=== PATIENT | female | born 1970 | race Caucasian/White ===

== ENCOUNTER 2024-03-07 14:30 | Outpatient (RCR) | payer MEDICAID, SELFPAY ==
--- NOTE | 2024-02-28 15:51 | PT.OIERPT ---
PT OP Initial Eval Patient Information Outpatient Physical Therapy Treatment Date: 02/28/24 Medical Diagnosis: Back Pain Treatment Dx #1: Back Pain Start of Care: 02/28/24 Smoking Status Smoking Status: Current some day smoker (yes) Cessation Counseling Provided: CHRISTIANO was advised that quitting smoking is the single most important factor to protect the health of themselves and their family. Discussed the benefits of quitting smoking with patient. Encouraged patient to quit smoking and provided Cessation assistance materials and resources. Tobacco Use: Cigarette Years smoked: 20 Are you interested in quitting?: No Would you like additional Smoking Cessation Counseling?: No Initial Assessment Subjective: Pt is a 53 y/o female reports of chronic back pain worsening 6 months ago. Pt mention pain goes down the legs up to the back of the knees. Pt's most recent MRI showed L4-L5 4mm central disc bulge. Pt has limitation with standing, chores, self care, sitting, walking, sleeping, and performing recreational activities. Objective: L/S AROM: all motions are WFL with end range in all planes Hip PROM: all motions are WFL except IR Hip MMTs: grossly 3/5 Muscle Length: Hs tightness Special Test (+) EULOGIO's (+) Aleksander (+) Assessment: Pt demonstrate back pain with mobility deficits leading to difficulty with ADLs. Pt will attempt physical therapy if pain persist Pt will be refer back to provider for further consultation. Short Term and Skilled Nursing Goals 1) Increase L/S AROM WNL in 6 wks to be able to perform chores 2) Decrease back pain to 2/10 in 6 wks to be able sit more than 30 mins 3) Increase core strength WFL in 6 wks to be able to perform recreational activities 4) Increase hip MMTs grossly 4-/5 in 6 wks to be able to walk more than 30 mins 5) Indep with HEP Treatment Plan 1) Manual Therapy 2) Therapeutic Activities 3) Therapeutic Exercises 4) Modalities (ice, heat, traction) Frequency and Duration: 2 x wk for 6 wks Certification Dates: 02/28/24 to 05/30/24 Procedure Charges OP PT Eval Mod Complex 30 minutes: Yes
--- NOTE | 2024-03-07 14:41 | PT.ODAYNRPT ---
PT Outpatient Daily Note OP Daily Note Outpatient Physical Therapy Treatment Date: 03/07/24 Subjective: Pt's back pain is about the same. No numbness or tingling down the legs. Objective: Please see flow chart for list of ther ex performed Assessment: tolerate exercises performed; pre heat helped with supine exercises Plan: Continue with PT Length of Time (minutes) of Treatment: 30 Minutes Procedure Charges Therapeutic Exercise 30 minutes: Yes
== END 2024-03-11 23:59 | disposition home or self-care (01) ==
LOC: CPTX 14:30
PROVIDERS: PCP Physician Assistant; Referring Provider Physician Assistant; Visit Provider Physician Assistant
DX: M54.9 Dorsalgia, unspecified (principal); G89.29 Other chronic pain; Z71.6 Tobacco abuse counseling; F17.210 Nicotine dependence, cigarettes, uncomplicated; R26.2 Difficulty in walking, not elsewhere classified
CPT/HCPCS: 97110; 97162

== ENCOUNTER 2024-03-27 15:30 | Outpatient (RCR) | payer MEDICAID, SELFPAY ==
--- NOTE | 2024-03-13 14:34 | PT.ODAYNRPT ---
PT Outpatient Daily Note OP Daily Note Outpatient Physical Therapy Treatment Date: 03/13/24 Visit Reasons: Low back pain Subjective: Pt's back was sore after last session. Pt mention she likes the heat on the back which helps with the pain. Objective: Please see flow chart for list of ther ex performed Assessment: tolerate exercises with minimal pain. improved Hs length noted with this session Plan: Continue with PT Length of Time (minutes) of Treatment: 30 Minutes Procedure Charges Therapeutic Exercise 30 minutes: Yes
--- NOTE | 2024-03-15 14:54 | PT.ODAYNRPT ---
PT Outpatient Daily Note OP Daily Note Outpatient Physical Therapy Treatment Date: 03/15/24 Visit Reasons: Low back pain Subjective: Pt's back slight soreness after last session. Pt likes the heat and wants to continue with it today. Objective: Please see flow chart for list of ther ex performed Assessment: tolerate exercises performed today. Pt guarded with LTR exercises due to anticipation of pain, however, able to complete instructed reps Plan: Continue with PT Length of Time (minutes) of Treatment: 30 Minutes Procedure Charges Therapeutic Exercise 30 minutes: Yes
--- NOTE | 2024-03-20 15:31 | PT.ODAYNRPT ---
PT Outpatient Daily Note OP Daily Note Outpatient Physical Therapy Treatment Date: 03/20/24 Visit Reasons: Low back pain Subjective: Pt's back is okay. Pt still notice stiffness and some restriction. Pt's leg pain has been less. Objective: Please see flow chart for list of ther ex performed Assessment: Pt require less cues to engage TrA with post tilt exercises. Plan: Continue with PT Length of Time (minutes) of Treatment: 30 Minutes Procedure Charges Therapeutic Exercise 30 minutes: Yes
--- NOTE | 2024-03-24 15:38 | PT.ODAYNRPT ---
PT Outpatient Daily Note OP Daily Note Outpatient Physical Therapy Treatment Date: 03/24/24 Visit Reasons: Low back pain Subjective: Pt's back is better since starting physical therapy. Pt has been able to do chores with less pain. Pt is undecided if she wants to continue or discontinue physical therapy after her last session. Objective: Please see flow chart for list of ther ex performed Assessment: able to tolerate BLE on SB during heat which prior session patient was unable to assume position. This indicate patient's improvement with L/S mobility Plan: Continue with PT Length of Time (minutes) of Treatment: 30 Minutes Procedure Charges Therapeutic Exercise 30 minutes: Yes
--- NOTE | 2024-03-27 15:54 | PT.ODS1RPT ---
PT OP Progress/Discharge Note Date of Service: 03/27/24 Progress Note/DC Note Progress Note/Discharge Note: DC Note Patient Information Visit Reasons: Low back pain Medical Diagnosis: Back Pain Treatment Dx #1: Back Pain Service Discharge Date: 03/27/24 Status Subjective: Pt continues to have back and leg pain leading to difficulty with ADLs, standing, chores, and walking. At the moment Pt will like to stop physical therapy and follow up with MD. Objective: L/S AROM: all motions are WFL Hip PROM: all motions are WFL except IR Hip MMTs: grossly 3+/5 Assessment: Pt demonstrate functional L/S mobility and strength, however, no change in pain leading to difficulty with ADLs. Pt will no longer benefit from physical therapy due to minimal progress towards goals. Pt was instructed on HEP last session and educated to continue exercises to maintian overall mobility. Pt performed all exercises safely, thank you for your referrals. Plan: D/C home with HEP and follow up with PRN Procedure Charges Therapeutic Exercise 30 minutes: Yes
== END 2024-04-11 23:59 | disposition home or self-care (01) ==
LOC: CPTX 15:30
PROVIDERS: PCP Physician Assistant; Referring Provider Physician Assistant; Visit Provider Physician Assistant
DX: M51.362 Other intervertebral disc degeneration, lumbar region with discogenic back pain and lower extremity pain (principal); R26.2 Difficulty in walking, not elsewhere classified
CPT/HCPCS: 97110

== ENCOUNTER → 2024-05-19 | Outpatient (CLI) | payer MEDICAID, SELFPAY ==
--- NOTE | 2024-05-19 15:30 | XR_ITS ---
Examination: Arterial duplex lower extremity study. Date and time of exam: May 19, 2024 1601 hrs. Indications: Bilateral ankle and leg weakness and pain this week Findings: Duplex sonographic imaging of the lower extremity arteries using B-mode/Vega scale imaging and Doppler spectral analysis and color flow. Ankle brachial indices have been recorded. Right common femoral artery demonstrates triphasic flow. Right superficial femoral artery demonstrates triphasic flow. Right popliteal artery demonstrates triphasic flow. Right posterior tibial artery demonstrated triphasic flow. Right ankle/brachial index is 1.1. Fluid medial right knee versus cyst 15 x 15 mm Left common femoral artery demonstrates triphasic flow. Left superficial femoral artery demonstrates triphasic flow. Left popliteal artery demonstrates triphasic flow. Left posterior tibial artery demonstrated triphasic flow. Left ankle/brachial index is 1.2. Impression: Negative for obstructive arterial disease
== END | disposition home or self-care (01) ==
LOC: CDIM 15:47
PROVIDERS: PCP Physician Assistant; Referring Provider Physician Assistant; Visit Provider Physician Assistant
DX: M79.606 Pain in leg, unspecified (principal); F17.210 Nicotine dependence, cigarettes, uncomplicated
CPT/HCPCS: 93925

== ENCOUNTER 2024-06-07 01:03 | Emergency (ER) | payer MEDICAID, SELFPAY ==
[2024-06-07 01:04] VITALS: BMI 29.8
[2024-06-07 01:10] VITALS: BP 145/83; PULSE 81; RESP 18; TEMP 36.7; O2SAT 96
--- NOTE | 2024-06-07 01:24 | XR_ITS ---
Examination: PA lateral chest 2 views Technique: Upright PA lateral chest 2 views Exam date and time: June 07, 2024 0125 hrs. Indications: Upper back pain beginning 4 days ago chest pain Findings: Normal heart size. Lungs are clear. The osseous structures are intact Impression: No active disease
--- NOTE | 2024-06-07 01:24 | PD.EDRME ---
Rapid Medical Screening Exam RME Arrival date/time: 06/07/24 01:03 53-year-old female past medical history of diabetes presents emergency department complaining of left upper thoracic back pain that worsens when she left upper arms or bends over. Patient reports onset 4 days ago. Patient denies any recent fall or trauma. Chief Complaint: Back Pain/Injury Time Seen by Provider: 06/07/24 01:13 Vital signs: Vital Signs Temperature 98.1 F 06/07/24 01:10 Pulse Rate 81 06/07/24 01:10 Respiratory Rate 18 06/07/24 01:10 Blood Pressure 145/83 H 06/07/24 01:10 Pulse Oximetry (%) 96 06/07/24 01:10 Oxygen Delivery Method Room Air 06/07/24 01:10 Vital signs reviewed by provider: Yes
[2024-06-07] MEDS: KETOROLAC INJ 60 MG/2 ML VIAL 30 MG IM (01:38)
[2024-06-07] MEDS: CYCLObenzaPRINE 5 MG TABLET PO (01:38)
--- NOTE | 2024-06-07 01:56 | PD.EDBACK ---
ED Back Injury Pain RME/HPI General Chief Complaint: Back Pain/Injury Stated Complaint: LEFT UPPER BACK PAIN RADIATES TO CHEST Time Seen by Provider: 06/07/24 01:13 Source: patient Arrival date/time: 06/07/24 01:03 53-year-old female past medical history of diabetes presents emergency department complaining of left upper thoracic back pain that worsens when she left upper arms or bends over. Patient reports onset 4 days ago. Patient denies any recent fall or trauma. Patient Nuys any fever, chills, nausea, vomiting, cough, shortness of breath, chest pain, sore throat, or any other associated symptom. Mode of arrival: ambulatory Limitations: no limitations RME / HPI RME / HPI Narrative: 06/07/24 01:03 53-year-old female past medical history of diabetes presents emergency department complaining of left upper thoracic back pain that worsens when she left upper arms or bends over. Patient reports onset 4 days ago. Patient denies any recent fall or trauma. Related Data Home Medications ?Medication ?Instructions ?Recorded ?Confirmed metformin 1,000 mg tablet 1,000 mg PO HS 04/02/21 11/24/23 atorvastatin 10 mg tablet 10 mg PO HS 11/24/23 11/24/23 dexlansoprazole 60 mg 60 mg PO DAILY 11/24/23 11/24/23 capsule,biphase delayed release mirabegron 25 mg tablet,extended 25 mg PO DAILY 11/24/23 11/24/23 release 24 hr Previous Rx's ?Medication ?Instructions ?Recorded acetaminophen 500 mg capsule 500 mg PO Q6H PRN pain #30 caps 06/07/24 cyclobenzaprine 10 mg tablet 10 mg PO TID PRN muscle spasm #10 06/07/24 tabs ibuprofen 600 mg tablet 600 mg PO Q8H PRN pain #20 tabs 06/07/24 Allergies Allergy/AdvReac Type Severity Reaction Status Date / Time No Known Allergies Allergy Verified 11/24/23 12:55 Review of Systems Review of Systems Systems Reviewed: All systems reviewed, normal except as documented Constitutional Constitutional: Reports system reviewed and no additional complaints, except as documented, Denies body ache(s), Denies chills and Denies fever(s) Eyes Eyes: Reports system reviewed and no additional complaints, except as documented and Denies change in vision ENT Ears, Nose, Mouth, and Throat: Reports system reviewed and no additional complaints, except as documented, Denies disequilibrium, Denies dizziness, Denies sore throat and Denies vertigo Cardiovascular Cardiovascular: Reports system reviewed and no additional complaints, except as documented, Denies chest pain and Denies dyspnea Respiratory Respiratory: Reports system reviewed and no additional complaints, except as documented, Denies chest congestion, Denies cough and Denies dyspnea Gastrointestinal Gastrointestinal: Reports system reviewed and no additional complaints, except as documented, Denies abdominal pain, Denies nausea and Denies vomiting Musculoskeletal Musculoskeletal: Reports system reviewed and no additional complaints, except as documented, Denies abnormal gait, Denies arthralgias and Reports back pain Integumentary/Breasts Skin/Breast: Reports system reviewed and no additional complaints, except as documented, Denies erythema, Denies rash and Denies wounds Neurologic Neurologic: Reports system reviewed and no additional complaints, except as documented, Denies abnormal gait, Denies disequilibrium, Denies dizziness and Denies vertigo Past Medical History Past Medical History NEUROLOGIC: Negative Neurological Disorders or Seizures CARDIAC: Positive Cardiac Disorders and Hypercholesterolemia; Negative Congestive Heart Failure RESPIRATORY: Negative Chronic Obstructive Pulmonary Disease (COPD), Asthma, Emphysema, Pneumonia or Tuberculosis GASTROINTESTINAL: Positive Gastroesophageal Reflux Disease; Negative Gastrointestinal Disorders GENITOURINARY: Positive Genitourinary Disorders (over reactive uinary bladder); Negative Renal Disease MUSCULOSKELETAL: Negative Musculoskeletal Disorders ENDOCRINE: Positive Endocrine Disorders and Diabetes Mellitus Type 2; Negative Diabetes Mellitus Type 1 HEMATOLOGIC: Negative Blood Disorders or Sickle Cell Disease OTHER HISTORY: Positive Chicken Pox; Negative Blood Transfusions, Anesthesia Reactions or Cancer Surgical History SURGICAL: Positive Tonsillectomy, Hysterectomy and Tubal Ligation; Negative Joint Replacement (bilateral feet surgery to remove extra bone ) Social History SMOKING STATUS: Current every day smoker ED Exam General Limitations: Present no limitations General appearance: Present alert and in no apparent distress Head Head exam: Present atraumatic Eye Eye exam: Present normal appearance, PERRL and EOMI ENT ENT exam: Present normal exam, normal oropharynx and mucous membranes moist Neck Neck exam: Present normal inspection, full ROM and trachea midline Chest Chest inspection: Present normal inspection and symmetric chest wall rise Respiratory Respiratory exam: Present normal lung sounds bilaterally Cardiovascular Cardiovascular exam: Present regular rate, normal rhythm and normal heart sounds Abdominal Exam Abdominal exam: Present soft and normal bowel sounds Extremities Exam Extremities exam: Present normal inspection and full ROM Back Exam Back exam: Present normal inspection and full ROM Neurological Exam Neurological exam: Present alert, oriented X3 and CN II-XII intact Psychiatric Psychiatric exam: Present normal affect and normal mood Skin Skin exam: Present warm, dry, intact and normal color Course Quality Measures none Orders Category Date Time Status XR chest 2V Stat Exams 06/07/24 01:24 Taken CYCLObenzaPRINE [Flexeril] Med 06/07/24 01:25 Discontinued 5 mg PO X1 ONE Ketorolac Inj [Toradol Inj] Med 06/07/24 01:25 Discontinued 30 mg IM X1 ONE Vital Signs Vital signs: Vital Signs Temperature 98.1 F 06/07/24 01:10 Pulse Rate 81 06/07/24 01:10 Respiratory Rate 18 06/07/24 01:10 Blood Pressure 145/83 H 06/07/24 01:10 Pulse Oximetry (%) 96 06/07/24 01:10 Oxygen Delivery Method Room Air 06/07/24 01:10 96% room air within normal limits Back Pain / Injury MDM Narrative MDM Narrative:: 53-year-old female past medical history of diabetes presents emergency department complaining of left upper thoracic back pain that worsens when she left upper arms or bends over. Patient reports onset 4 days ago. Patient denies any recent fall or trauma. Patient Nuys any fever, chills, nausea, vomiting, cough, shortness of breath, chest pain, sore throat, or any other associated symptom. Patient's upper extremity are neurovascularly intact with full active range of motion. No costovertebral tenderness and negative Abreu's punch negative. Left upper back pain worsens with movement and also upon palpation. Patient likely has muscle strain. Chest x-ray was unremarkable for any pneumonic infiltrates based on my interpretation and patient is asymptomatic with no cough or difficulty breathing. Will discharge patient with pain medication and instructed to have close follow-up with primary care provider request referral to physical therapy if symptoms persist or return immediately to emergency department for any worsening symptoms or as needed. Patient data External records reviewed:: [facility] previous records Clinical information provided by:: patient Social determinants that could affect healthcare access:: none Patient has the following chronic illnesses:: See chart How is presenting disease/condition affected by chronic disease/condition?: uneffected by Evaluation data The following diagnostics were reviewed and interpreted by me:: radiology exam(s) Lab and/or radiology exams considered but not ordered:: Ordered Interpretation Summary: Interpreted by me Medications / Prescriptions Medications or Prescriptions considered but not ordered:: Ordered Medication administrations:: Medication Administration History Discontinued Medications Cyclobenzaprine HCl (Cyclobenzaprine 5 Mg Tablet) 5 mg PO X1 ONE Stop: 06/07/24 01:26 Last Admin: 06/07/24 01:38 Dose: 5 mg Documented By: CVL Ketorolac Tromethamine (Ketorolac Inj 60 Mg/2 Ml Vial) 30 mg IM X1 ONE Stop: 06/07/24 01:26 Last Admin: 06/07/24 01:38 Dose: 30 mg Documented By: CVL Given Consultations Consultation(s) initiated? (list below): No Diagnosis Differential diagnosis back pain/injury: lumbar radiculopathy, renal colic, pyelonephritis, thoracic back pain and discitis Most likely diagnosis given after review of the tests above:: Strain of thoracic back region Admission Indicated Admission indicated?: not indicated Admission Request Was there a request for admission?: No Disposition Plan Disposition Plan: Discharge Discharge Attestation Discharge Attestation: The patient and all family members were given an opportunity to ask questions and understood the discharge instructions. Discharge instructions specifically effects, indications for sooner follow up or return to the emergency department, and the expected course of current diagnosis. Patient condition: Stable Discharge Plan Plan Patient Disposition: HOME (Self Care) Disposition Comment: Stable Prescriptions/Referrals Prescriptions/Med Rec: New cyclobenzaprine 10 mg tablet 10 mg PO TID PRN (Reason: muscle spasm) Qty: 10 0RF ibuprofen 600 mg tablet 600 mg PO Q8H PRN (Reason: pain) Qty: 20 0RF acetaminophen 500 mg capsule 500 mg PO Q6H PRN (Reason: pain) Qty: 30 0RF No Action metformin 1,000 mg Tablet 1,000 mg PO HS atorvastatin 10 mg tablet 10 mg PO HS Patient Comments: TAKE 1 TABLET BY MOUTH EVERY DAY AT BEDTIME FOR CHOLESTEROL dexlansoprazole 60 mg capsule,biphase delayed releas 60 mg PO DAILY Patient Comments: TAKE 1 CAPSULE BY MOUTH DAILY 1/2 HOUR BEFORE A MEAL FOR STOMACH mirabegron 25 mg tablet extended release 24 hr 25 mg PO DAILY Patient Comments: TAKE 1 TABLET BY MOUTH EVERY DAY FOR URINE Referrals: Liv Aldrich PA-C [Primary Care Provider] - In 1 week Problem List Clinical Impression: Strain of thoracic back region Patient/Caregiver Discharge Instructions Discharge Activity: activity as tolerated Education Materials: Treating?Strains and Sprains, Self-Care for Strains and Sprains, ED Back Sprain/Strain Additional Instructions: Drink plenty of fluids and stay hydrated. Take pain medication as prescribed. Follow-up with primary care provider in 2 to 3 days and request referral to physical therapy if symptoms persist. Return to emergency department for any worsening symptoms or as needed. Print Language: Sinhala Stand Alone Forms: Vera Award Info., Patient Portal Info Letter PA/HAND PATTERN MARKER Supervising Physician PA/HAND PATTERN MARKER Supervising Physician: Dr. Arce
== END 2024-06-07 02:25 | disposition home or self-care (01) ==
PROVIDERS: Emergency Provider Emergency Medicine; PCP Physician Assistant
DX: S29.012A Strain of muscle and tendon of back wall of thorax, initial encounter (principal); X58.XXXA Exposure to other specified factors, initial encounter
CPT/HCPCS: 71046; 96372; 99283; J1885; A9270

== ENCOUNTER → 2024-07-05 | Outpatient (CLI) | payer MEDICAID, SELFPAY ==
--- NOTE | 2024-07-05 15:15 | XR_ITS ---
Examination: Screening digital mammography, bilateral Computer aided detection 3-D breast Tomosynthesis, bilateral Date and time of exam: July 05, 2024 1554 hours Comparison April 14, 2016 Indication: Screening Technique: Nonmagnified MLO, CC views of the breasts to been obtained, reconstructed from 3-D Tomosynthesis images. R2 computer aided detection program utilized for evaluation of suspicious masses and/or abnormal calcifications. 3-D Tomosynthesis images obtained. Findings: Scattered areas of fibroglandular density. Benign calcifications No interval suspicious masses Impression: BI-RADS category II: Benign Findings. Recommend 1 year follow-up mammogram.
== END | disposition home or self-care (01) ==
LOC: CDIM 14:43
PROVIDERS: Referring Provider Physician Assistant; Visit Provider Physician Assistant
DX: Z12.31 Encounter for screening mammogram for malignant neoplasm of breast (principal); R92.323 Mammographic fibroglandular density, bilateral breasts; R92.1 Mammographic calcification found on diagnostic imaging of breast
CPT/HCPCS: 77063; 77067

== ENCOUNTER 2024-07-30 13:29 | Emergency (ER) | payer MEDICAID, SELFPAY ==
[2024-07-30 13:30] VITALS: BMI 29.8
--- NOTE | 2024-07-30 13:35 | EKG_ITS ---
[facility] Test Date: 2024-07-30 Pat Name: CHRISTIANO ISBELL Department: Room: - Gender: Female Relationship Specialist: : [id number] Requested By: ED Temporary Provider Order Number: [id number] Reading MD: ED Temporary Provider Measurements Intervals [place] Rate: 85 P: 69 PA: 145 QRS: 48 QRSD: 77 T: 77 QT: 334 QTc: 398 Interpretive Statements SINUS RHYTHM WITH SINUS ARRHYTHMIA Compared to ECG 08/16/2023 01:06:01 Myocardial infarct finding no longer present /store/[id number]
[2024-07-30 13:40] VITALS: BP 141/90; PULSE 78; RESP 18; TEMP 36.7; O2SAT 100
--- NOTE | 2024-07-30 13:41 | XR_ITS ---
Examination: PA lateral chest 2 views Technique: Upright PA lateral chest 2 views Exam date and time: July 30, 2024 1405 hrs. Comparison June 07, 2024 Indications: Chest pain beginning 5 days ago. Findings: Normal heart size. Lungs are clear. Moderate osteopenia Impression: No pneumonia or pulmonary edema
--- NOTE | 2024-07-30 13:41 | PD.EDRME ---
Rapid Medical Screening Exam E Arrival date/time: 07/30/24 13:29 53-year-old female presents emergency dept with complaints of upper abdominal pain and chest pain x 5 days Chief Complaint: Chest Pain Vital signs: Vital Signs Temperature 98.1 F 07/30/24 13:40 Pulse Rate 78 07/30/24 13:40 Respiratory Rate 18 07/30/24 13:40 Blood Pressure 141/90 H 07/30/24 13:40 Pulse Oximetry (%) 100 07/30/24 13:40 Oxygen Delivery Method Room Air 07/30/24 13:40
[2024-07-30 14:08] LABS: Collection Type, Urine Clean Catch
[2024-07-30 14:13] LABS: Basophils # (Auto) 0.1 Thou/mm3 (0.0-0.2); Basophils % (Auto) 1 % (0-2.5); Eosinophils # (Auto) 0.1 Thou/mm3 (0.0-0.5); Eosinophils % (Auto) 1 % (0-10); Hematocrit 42.9 % (36.0-46.0); Hemoglobin 14.2 g/dL (12.0-16.0); Immature Granulocytes % (Auto) 0 % (0-0); Immature Granulocytes Auto 0.03 Thou/mm3 (0.00-0.00); Lymphocytes # (Auto) 1.9 Thou/mm3 (1.0-4.8); Lymphocytes % (Auto) 17 % (10-50); Mean Corpuscular HGB Conc 33.1 g/dl (31.0-37.0); Mean Corpuscular Hemoglobin 28.6 pg (25.0-35.0); Mean Corpuscular Volume 87 fL (80-100); Monocytes # (Auto) 0.6 Thou/mm3 (0.0-0.8); Monocytes % (Auto) 5 % (0-12); Neutrophils # (Auto) 8.2 Thou/mm3 (1.8-7.7); Neutrophils % (Auto) 75 % (37-80); Nucleated Red Blood Cell % 0 /100 WBC (0); Platelet Count 388 Thou/mm3 (140-440); RDW Standard Deviation 45.5 fL (36.4-46.3); Red Blood Count 4.96 Miln/mm3 (4.00-5.20); White Blood Count 10.9 Thou/mm3 (3.6-11.0)
[2024-07-30 14:26] LABS: Partial Thromboplastin Time 23.7 Seconds (22.0-36.0); Prothrombin Time 10.9 Seconds (9.0-12.2)
[2024-07-30 14:33] LABS: B-Type Natriuretic Peptide 27 pg/mL (0-100)
[2024-07-30 14:39] LABS: Alanine Aminotransferase 13 U/L (10-49); Albumin, Serum 4.5 gm/dL (3.5-5.0); Alkaline Phosphatase 158 U/L (46-116); Anion Gap 7 (7-16); Aspartate Amino Transferase 14 U/L (0-34); BUN/Creatinine Ratio 7 Ratio (12-20); Bilirubin,Total 0.7 mg/dL (0.3-1.2); Blood Urea Nitrogen 6 mg/dL (9-23); Calcium 9.5 mg/dL (8.3-10.6); Calcium (Corrected) 9.5 mg/dL (8.5-10.1); Carbon Dioxide 23.1 mMol/L (20.0-31.0); Chloride 112 mMol/L (98-107); Creatinine (Component) 0.9 mg/dL (0.6-1.3); Estimated Creatinine Clearance 67.3 mL/min (>60); Globulin 2.2 gm/dL (2.3-3.5); Glucose 215 mg/dL (74-106); Lipase 31 U/L (12-53); Magnesium 1.7 mg/dL (1.6-2.6); Osmolality,Calculated 286 (275-295); Sodium 142 mMol/L (136-145); Total Protein 6.7 gm/dL (5.7-8.2); Troponin I < 0.002 ng/mL (0.0-0.045); eGFR > 60 See Note
[2024-07-30 14:48] LABS: Bilirubin,Urine Negative (Negative); Blood,Urine Negative (Negative); Clarity,Urine Clear (Clear/Hazy); Color,Urine Lt-Yellow (Lt Yel-Yel); Glucose, Urine Negative (Negative); Ketones,Urine Negative (Negative); Leukocyte Esterase,Urine Positive (Negative); Nitrite,Urine Negative (Negative); PH,Urine 5.5 (5.0-7.0); Protein,Urine Negative (Neg - Trace); RBC,Urine 1 /hpf (0-3); Specific Gravity,Urine 1.014 (1.001-1.035); Squamous Epithelial Cell,Urine 2 /hpf (0-5); Urobilinogen,Urine Negative mg/dL (0.0-1.0); WBC,Urine 2 /hpf (0-5)
[2024-07-30 14:50] LABS: Amphetamine/Methamp Scrn,U Negative (Negative); Barbiturate Screen,Urine Negative (Negative); Benzodiazepines Screen,Urine Negative (Negative); Benzoylecgonine Screen, Ur Negative (Negative); Fentanyl Screen,Urine Negative (Negative); Opiate Screen,Urine Negative (Negative); THC Screen,Urine Negative (Negative)
[2024-07-30 16:26] VITALS: BP 153/91; PULSE 84; RESP 12; TEMP 36.9; O2SAT 97
--- NOTE | 2024-07-30 16:33 | EDNOTE_ITS ---
ED General RME/HPI General Chief complaint: Chest Pain Stated complaint: CHEST PAIN X 5 DAYS Time Seen by Provider: 07/30/24 16:12 Arrival date/time: 07/30/24 13:29 CC: Epigastric pain ongoing for the past 5 days denies any diarrhea vomiting, prior episodes in the past worse at nighttime when she lays down. He is on dexlansoprazole for heartburn but has been on it for years. Has an outpatient referral for GI. Denies shortness of breath fever chills nausea or vomiting. RME / HPI RME / HPI narrative: 07/30/24 13:29 53-year-old female presents emergency dept with complaints of upper abdominal pain and chest pain x 5 days Related Data Home Medications ?Medication ?Instructions ?Recorded ?Confirmed metformin 1,000 mg tablet 1,000 mg PO HS 04/02/2111/10 atorvastatin 10 mg tablet 10 mg PO HS 11/24/23 4 dexlansoprazole 60 mg 60 mg PO DAILY 11/24/2311/10 capsule,biphase delayed release mirabegron 25 mg tablet,extended 25 mg PO DAILY 11/24/23 release 24 hr Previous Rx's ?Medication ?Instructions ?Recorded acetaminophen 500 mg capsule 500 mg PO Q6H PRN pain #3 0 caps 06/07/24 cyclobenzaprine 10 mg tablet 10 mg PO TID PRN muscle s pasm #10 06/07/24 tabs ibuprofen 600 mg tablet 600 mg PO Q8H PRN pain #20 t abs 06/07/24 pantoprazole 40 mg granules 40 mg PO QDAY #30 ea 07/30 delayed-release for susp in packet (Protonix) Allergies Allergy/AdvReac Type Severity Reaction Status Date / Time No Known Allergies Allergy Verified 07/30/24 13:33 Review of Systems Review of Systems Narrative Review of Systems: GEN: No fever, no chills, no weight loss EYES: No discharge, no visual changes, no pain HEENT: No ear pain, no congestion, no sore throat PULM: No shortness of breath, no cough, no congestion CV: No chest pain, no dyspnea on exertion, no palpitations GI: No nausea, no vomiting, no diarrhea, + epigastric pain, no constipation : No frequency, no urgency, no dysuria MUSC/SKEL: No joint pain, no back pain SKIN: No rash PSYCH: No hallucinations, no depression HEME/LYMPH: No easy bleeding or bruising tendencies NEURO: No weakness, no headache Past Medical History Past Medical History NEUROLOGIC: Negative Neurological Disorders or Seizures CARDIAC: Positive Cardiac Disorders and Hypercholesterolemia; Negative Congestive Heart Failure RESPIRATORY: Negative Chronic Obstructive Pulmonary Disease (COPD), Asthma, Emphysema, Pneumonia or Tuberculosis GASTROINTESTINAL: Positive Gastroesophageal Reflux Disease; Negative Gastrointestinal Disorders GENITOURINARY: Positive Genitourinary Disorders (over reactive uinary bladder); Negative Renal Disease MUSCULOSKELETAL: Negative Musculoskeletal Disorders ENDOCRINE: Positive Endocrine Disorders and Diabetes Mellitus Type 2; Negative Diabetes Mellitus Type 1 HEMATOLOGIC: Negative Blood Disorders or Sickle Cell Disease OTHER HISTORY: Positive Chicken Pox; Negative Blood Transfusions, Anesthesia Reactions or Cancer Surgical History SURGICAL: Positive Tonsillectomy, Hysterectomy and Tubal Ligation; Negative Joint Replacement (bilateral feet surgery to remove extra bone ) Social History SMOKING STATUS: Current every day smoker ED Exam Narrative Physical exam: [General: Mild discomfort but not in any acute distress Head normocephalic HEENT: Within acceptable limits Neck is supple nontender Chest equal chest rise nontender to palpation Respiratory: Clear to auscultation no wheezes crackles or rubs CV: Rate rhythm is regular no murmurs rubs or clicks Abdomen epigastric pain with palpation, reflexive guarding no rebound tenderness no right upper quadrant tenderness with palpation. Back: No CVA tenderness no spinous process tenderness from cervical spine thoracic and lumbar spine Skin: Intact no petechiae rash induration ulceration or crepitus Extremities: Moving all extremity against resistance cap refill less than 2 seconds neurosensory intact Neuro: Awake alert oriented x3 Glascow coma 15 no focal deficits] Course Quality Measures none Orders Category Date Time Status EKG (ED ONLY) *Do not use* NOW Care 07/30/24 13:35 Completed EKG (ED Only) Stat Exams 07/30/24 13:35 Draft XR chest 2V Stat Exams 07/30/24 13:41 Completed B-Type Natriuretic Peptide Stat Lab 07/30/24 13:49 Completed CBC Stat Lab 07/30/24 13:49 Completed Comprehensive Metabolic Panel Stat Lab 07/30/24 13:49 Completed Drug Screen,Urine Stat Lab 07/30/24 13:35 Completed Lipase Stat Lab 07/30/24 13:49 Completed Magnesium Stat Lab 07/30/24 13:49 Completed Partial Thromboplastin Time Stat Lab 07/30/24 13:49 Completed Prothrombin Time with INR Stat Lab 07/30/24 13:49 Completed Troponin I Stat Lab 07/30/24 13:49 Completed Urinalysis Stat Lab 07/30/24 13:35 Completed Lidocaine 2% Viscous [Xylocaine 2% Viscous] Med 07/30/24 16:32 Once 15 ml PO X1 ONE mg Hyd/Al Hyd/Damon Susp [Maalox Susp] Med 07/30/24 16:32 Once 30 ml PO X1 ONE Vital Signs Vital signs: Vital Signs Temperature 98.1 F 07/30/24 13:40 Pulse Rate 78 07/30/24 13:40 Respiratory Rate 18 07/30/24 13:40 Blood Pressure 141/90 H 07/30/24 13:40 Pulse Oximetry (%) 100 07/30/24 13:40 Oxygen Delivery Method Room Air 07/30/24 13:40 Discharge Plan Plan Patient Disposition: HOME (Self Care) Patient condition on transfer: Stable Prescriptions/Referrals Prescriptions/Med Rec: New pantoprazole [Protonix] [address] for susp in packet 40 mg PO QDAY Qty: 30 0RF No Action metformin 1,000 mg Tablet 1,000 mg PO HS cyclobenzaprine 10 mg tablet 10 mg PO TID PRN (Reason: muscle spasm) Qty: 10 0RF ibuprofen 600 mg tablet 600 mg PO Q8H PRN (Reason: pain) Qty: 20 0RF acetaminophen 500 mg capsule 500 mg PO Q6H PRN (Reason: pain) Qty: 30 0RF atorvastatin 10 mg tablet 10 mg PO HS Patient Comments: TAKE 1 TABLET BY MOUTH EVERY DAY AT BEDTIME FOR CHOLESTEROL dexlansoprazole 60 mg capsule,biphase delayed releas 60 mg PO DAILY Patient Comments: TAKE 1 CAPSULE BY MOUTH DAILY 1/2 HOUR BEFORE A MEAL FOR STOMACH mirabegron 25 mg tablet extended release 24 hr 25 mg PO DAILY Patient Comments: TAKE 1 TABLET BY MOUTH EVERY DAY FOR URINE Referrals: Liv Aldrich PA-C [Primary Care Provider] - In 1 week Dmitry Urena MD [Physician] - In 1 week Problem List Clinical Impression: Epigastric abdominal pain, GERD (gastroesophageal reflux disease) Patient/Caregiver Discharge Instructions Education Materials: ED Diet, [place] (Adult), ED GERD (Adult) Additional Instructions: Cut back, smoking is much as possible stop all alcohol, take the new medication follow-up with your primary care doctor follow-up with the GI doctor listed above if necessary if there is worsening of symptoms in spite of the medications return to the emergency room with for reevaluation Print Language: Mosotho Stand Alone Forms: Vera Award Info., Patient Portal Info Letter, Work/School Release PA/CURRICULUM DEVELOPMENT MANAGER Supervising Physician PA/CURRICULUM DEVELOPMENT MANAGER Supervising Physician: Sukhjinder Palomares ENP MDM Patient Acuity High Acuity (complete MDM) Clinical Information Provided by: patient Other: Patient has hyperlipidemia diabetes and GERD. Medical Records reviewed [facility] Meds/Rx considered, not ordered None Chronic Illness/Social Conditions Explain: Diabetes hyperlipidemia GERD EKG EKG Interpretation(s): Show EKG performed at 1338 shows a ventricular rate of 85 OH interval 145 QRS of 77 QTc of 376 normal sinus rhythm. Labs Lab(s) Interpretation(s): CBC shows no leukocytosis anemia thrombocytopenia Coags within acceptable limits Chloride is 112 BUN is 6 glucose of 215 no other electrolyte imbalances renal impairment transaminitis or T. bili elevation. Troponin is negative BNP is negative Urine is negative for UTI UDS is negative Chest x-ray is unremarkable as interpreted by me read by radiology. Imaging Imaging interpretation: Interpreted by me Medication Administration(s) none Medication Administration History Al Hydrox/Mg Hydrox/Simethicone (Mg Hyd/Al Hyd/Damon (Maalox Reg) Susp 30 Ml Udc) 30 ml PO X1 ONE Stop: 07/30/24 16:33 Lidocaine HCl (Lidocaine Viscous 2% 15 Ml Udc) 15 ml PO X1 ONE Stop: 07/30/24 16:33 Diagnosis Differential Diagnosis ED Complaint MDM: Heartburn GERD esophagitis
[2024-07-30] MEDS: MG HYD/AL HYD/SIME (Maalox Reg) SUSP 30 ML UDC PO (16:39)
[2024-07-30] MEDS: LIDOCAINE VISCOUS 2% 15 ML UDC PO (16:39)
== END 2024-07-30 16:59 | disposition home or self-care (01) ==
PROVIDERS: Nurse Practitioner Primary Care; Emergency Provider Family Medicine; PCP Physician Assistant
DX: K21.9 Gastro-esophageal reflux disease without esophagitis (principal); R07.9 Chest pain, unspecified
CPT/HCPCS: 36415; 71046; 80053; 80307; 81001; 83690; 83735; 83880; 84484; 85025; 85610; 85730; 99283; J3490; A9270

== ENCOUNTER → 2024-09-18 | Outpatient (CLI) | payer MEDICAID, SELFPAY ==
--- NOTE | 2024-09-18 07:30 | XR_ITS ---
Exam: MRI knee without contrast, left Date and time of exam: September 18, 2024 0817 hours INDICATIONS: Onset knee pain beginning 5 months ago Technique: Multiple axial, coronal, and sagittal sections on the knee have been obtained. T2-Weighted sagittal, fat-suppressed images, TR 3,500, TE 62, T2 weighted coronal fat-saturated images, TR 3,500, TE 62 Proton density sagittal sections, TR 1800, TE 31. T-1 weighted coronal images, TR 524, TE 13.0 Findings: Medial meniscus anterior horn intact. Medial meniscus, body is intact. Posterior horn medial meniscus intact. Lateral meniscus anterior horn is intact Lateral meniscus, body tiny vertical tear inner margin Posterior horn lateral meniscus is intact Anterior cruciate ligament moderate sprain Posterior cruciate ligament appears intact. Knee effusion is small. Quadriceps and patellar tendons appear intact. There is no evidence of tendinosis. Inflammatory change or fracture of Hoffa's fat pad is not seen. Medial patellar facet demonstrates mild thinning. Lateral patellar facet cartilage demonstrates mild thinning. Trochlear cartilage demonstrates mild thinning. Marrow signal adequate. Medial collateral ligament appears intact. No meniscocapsular separation is seen. Illiotibial band and fibular collateral ligament are intact. Biceps femoris tendons appear intact. Medial femoral condylar articular cartilage demonstrates moderate thinning. Lateral femoral condylar articular cartilage demonstratesmoderate thinning. Tibial plateau cartilage demonstrates moderate thinning. Impression: Tiny vertical tear inner margin body of the lateral meniscus Moderate sprain anterior cruciate ligament is\
== END | disposition home or self-care (01) ==
LOC: SMRI 07:19
PROVIDERS: PCP Physician Assistant; Referring Provider Orthopaedic Surgery; Visit Provider Orthopaedic Surgery
DX: S83.282A Other tear of lateral meniscus, current injury, left knee, initial encounter (principal); S83.512A Sprain of anterior cruciate ligament of left knee, initial encounter; X58.XXXA Exposure to other specified factors, initial encounter
CPT/HCPCS: 73721

== ENCOUNTER 2024-10-04 23:42 | Emergency (ER) | payer MEDICAID, SELFPAY ==
[2024-10-04 23:43] VITALS: BMI 29.8
[2024-10-05 00:06] VITALS: BP 144/82; PULSE 79; RESP 20; TEMP 36.9; O2SAT 95
--- NOTE | 2024-10-05 00:21 | XR_ITS ---
Examination: PA chest single view. Technical upright PA chest single view. Date and time: October 05, 2024, 12:36 AM. INDICATIONS: Chest pain beginning 2 days ago. FINDINGS: Normal heart size. Lungs are clear. Moderate osteopenia. IMPRESSION: No active disease.
--- NOTE | 2024-10-05 00:21 | EDRME_ITS ---
Rapid Medical Screening Exam FORMERLY [facility], [facility] Arrival date/time: 10/04/24 23:42 53F with history of smoking cigarettes presents to ED with 2 days of intermittent CP and some SOB. Patient denies URI symptoms, fevers/chills, and fall/trauma. Patient states this feels different than when she has acide reflux. Chief Complaint: Chest Pain Vital signs: Vital Signs Temperature 98.5 F 10/05/24 00:06 Pulse Rate 79 10/05/24 00:06 Respiratory Rate 20 10/05/24 00:06 Blood Pressure 144/82 H 10/05/24 00:06 Pulse Oximetry (%) 95 10/05/24 00:06 Oxygen Delivery Method Room Air 10/05/24 00:06
[2024-10-05 00:48] LABS: Basophils % (Auto) 0 % (0-2.5); Eosinophils # (Auto) 0.2 Thou/mm3 (0.0-0.5); Eosinophils % (Auto) 1 % (0-10); Hematocrit 38.1 % (36.0-46.0); Hemoglobin 13.1 g/dL (12.0-16.0); Immature Granulocytes % (Auto) 0 % (0-0); Immature Granulocytes Auto 0.04 Thou/mm3 (0.00-0.00); Lymphocytes # (Auto) 3.2 Thou/mm3 (1.0-4.8); Lymphocytes % (Auto) 25 % (10-50); Mean Corpuscular HGB Conc 34.4 g/dl (31.0-37.0); Mean Corpuscular Volume 85 fL (80-100); Monocytes # (Auto) 0.8 Thou/mm3 (0.0-0.8); Monocytes % (Auto) 6 % (0-12); Neutrophils # (Auto) 8.8 Thou/mm3 (1.8-7.7); Neutrophils % (Auto) 67 % (37-80); Nucleated Red Blood Cell % 0 /100 WBC (0); Platelet Count 262 Thou/mm3 (140-440); RDW Standard Deviation 43.2 fL (36.4-46.3); Red Blood Count 4.51 Miln/mm3 (4.00-5.20)
[2024-10-05] MEDS: Aspirin 325 MG TABLET PO (00:53)
[2024-10-05] MEDS: MG HYD/AL HYD/SIME (Maalox Reg) SUSP 30 ML UDC PO (00:53)
[2024-10-05] MEDS: FAMOTIDINE 20 MG TABLET 40 MG PO (00:53)
[2024-10-05 01:02] LABS: Alanine Aminotransferase 20 U/L (10-49); Albumin, Serum 4.2 gm/dL (3.5-5.0); Albumin/Globulin Ratio 2.1 (1.2-2.2); Alkaline Phosphatase 156 U/L (46-116); Anion Gap 8 (7-16); Aspartate Amino Transferase 18 U/L (0-34); BUN/Creatinine Ratio 8 Ratio (12-20); Bilirubin,Total 0.4 mg/dL (0.3-1.2); Blood Urea Nitrogen 7 mg/dL (9-23); Calcium 9.4 mg/dL (8.3-10.6); Calcium (Corrected) 9.4 mg/dL (8.5-10.1); Carbon Dioxide 22.9 mMol/L (20.0-31.0); Chloride 108 mMol/L (98-107); Creatinine (Component) 0.9 mg/dL (0.6-1.3); Estimated Creatinine Clearance 67.3 mL/min (>60); Glucose 145 mg/dL (74-106); Lipase 37 U/L (12-53); Osmolality,Calculated 278 (275-295); Sodium 139 mMol/L (136-145); Total Protein 6.2 gm/dL (5.7-8.2); Troponin I < 0.002 ng/mL (0.0-0.045); eGFR > 60 See Note
[2024-10-05 01:10] LABS: B-Type Natriuretic Peptide 38 pg/mL (0-100)
--- NOTE | 2024-10-05 01:33 | PC.NURSE ---
CALLED FOR PT FROM LOBBY/OUTSIDE, NO [email or web address]@ [id number]
--- NOTE | 2024-10-05 02:09 | PD.EDCHEST ---
ED Chest Pain RME/HPI General Chief Complaint: Chest Pain Stated Complaint: CXP Arrival date/time: 10/04/24 23:42 RME / HPI RME / HPI narrative: 10/04/24 23:42 53F with history of smoking cigarettes presents to ED with 2 days of intermittent CP and some SOB. Patient denies URI symptoms, fevers/chills, and fall/trauma. Patient states this feels different than when she has acide reflux. DR GUAJARDO MAIN ED EVALUATION: 53 y/o female with Hx of Smoking, Hypercholesterolemia, Diabetes Mellitus Type 2, and GERD presents to ED c/o intermittent centralized chest pain and mild cough x 2 days. Patient states movement and application of pressure to the chest worsens pain. Patient denies fever or any other associated symptoms or aggravating factors. No modifying factors, no radiation, no migration. No pain reported overall. No other concerns or complaints expressed at this time. Related Data Home Medications ?Medication ?Instructions ?Recorded ?Confirmed metformin 1,000 mg tablet 1,000 mg PO HS 04/02/21 11/24/23 atorvastatin 10 mg tablet 10 mg PO HS 11/24/23 11/24/23 dexlansoprazole 60 mg 60 mg PO DAILY 11/24/23 11/24/23 capsule,biphase delayed release mirabegron 25 mg tablet,extended 25 mg PO DAILY 11/24/23 11/24/23 release 24 hr Previous Rx's ?Medication ?Instructions ?Recorded acetaminophen 500 mg capsule 500 mg PO Q6H PRN pain #30 caps 06/07/24 cyclobenzaprine 10 mg tablet 10 mg PO TID PRN muscle spasm #10 06/07/24 tabs ibuprofen 600 mg tablet 600 mg PO Q8H PRN pain #20 tabs 06/07/24 pantoprazole 40 mg granules 40 mg PO QDAY #30 ea 07/30/24 delayed-release for susp in packet (Protonix) ibuprofen 600 mg tablet 600 mg PO Q6H PRN pain #30 tabs 10/05/24 Allergies Allergy/AdvReac Type Severity Reaction Status Date / Time No Known Allergies Allergy Verified 10/04/24 23:50 Review of Systems Review of Systems Systems Reviewed: All systems reviewed, normal except as documented Past Medical History Past Medical History CARDIAC: Positive Cardiac Disorders and Hypercholesterolemia GASTROINTESTINAL: Positive Gastroesophageal Reflux Disease GENITOURINARY: Positive Genitourinary Disorders (over reactive uinary bladder) ENDOCRINE: Positive Endocrine Disorders and Diabetes Mellitus Type 2 OTHER HISTORY: Positive Chicken Pox Surgical History SURGICAL: Positive Tonsillectomy, Hysterectomy and Tubal Ligation Social History SMOKING STATUS: Current every day smoker ED Exam Narrative Physical exam: GENERAL APPEARANCE: alert and oriented x 4, well-developed, well-nourished, no acute distress VITALS: All vitals were reviewed and the pulse ox is 95% on room air, which is normal according to my interpretation. HEENT: Normocephalic, atraumatic; pupils equal, round, reactive to light; EOMI; mucous membranes pink, moist; oropharynx clear NECK: Supple CHEST: Chest wall tenderness LUNGS: CTABL; no wheezes, no rales, no rhonchi HEART: Regular rate, regular rhythm; normal S1, S2; no murmurs ABDOMEN: non distended; normal BS; soft, no tenderness, no guarding, no rebound; no masses, no organomegaly, no hernia BACK: no CVA tenderness EXTREMITIES: atraumatic; no edema NEUROLOGIC: awake; alert and oriented x4; cranial nerves II-XII grossly intact; no focal sensory or motor deficits PSYCHIATRIC: appropriate mood and affect SKIN: warm, dry, normal color; no rashes Course Course Course Narrative: CXR is ordered for determining the etiology of shortness of breath. Quality Measures none Orders Category Date Time Status EKG (ED ONLY) *Do not use* NOW Care 10/04/24 23:51 Completed EKG (ED Only) Stat Exams 10/04/24 23:50 Ordered XR chest 1V portable Stat Exams 10/05/24 00:21 Taken B-Type Natriuretic Peptide Stat Lab 10/05/24 00:37 Completed CBC Stat Lab 10/05/24 00:37 Completed Comprehensive Metabolic Panel Stat Lab 10/05/24 00:37 Completed Lipase Stat Lab 10/05/24 00:37 Completed Troponin I Stat Lab 10/05/24 00:37 Completed Aspirin Med 10/05/24 00:30 Discontinued 325 mg PO X1 ONE Famotidine [Pepcid] Med 10/05/24 00:30 Discontinued 40 mg PO X1 ONE HYDROcodone*/APAP 5/325 [[place] 5/325] Med 10/05/24 02:15 Discontinued 1 tab PO X1 ONE Ketorolac Inj [Toradol Inj] Med 10/05/24 02:15 Discontinued 30 mg IM X1 ONE mg Hyd/Al Hyd/Damon Susp [Maalox Susp] Med 10/05/24 00:30 Discontinued 30 ml PO X1 ONE Vital Signs Vital signs: Vital Signs Temperature 98.5 F 10/05/24 00:06 Pulse Rate 79 10/05/24 00:06 Respiratory Rate 20 10/05/24 00:06 Blood Pressure 144/82 H 10/05/24 00:06 Pulse Oximetry (%) 95 10/05/24 00:06 Oxygen Delivery Method Room Air 10/05/24 00:06 Chest Pain MDM Narrative MDM Narrative:: Scribe Attestation: I, Lavonne Winston, am scribing for and in the presence of Dr. Guajardo. Provider Notation: Although this document has been carefully reviewed, there may still be some phonetic and other typographical errors.? These errors are purely grammatical due to imperfections in the software program and should not be construed in any way to? compromise the substance of the patient's medical care during this visit. Patient data External records reviewed:: [facility] previous records (Reviewed prior ED records from 07/30/24. Patient was seen for Epigastric abdominal pain.) Clinical information provided by:: patient Patient has the following chronic illnesses:: Hypercholesterolemia, Gastroesophageal Reflux Disease, Diabetes Mellitus Type 2 How is presenting disease/condition affected by chronic disease/condition?: exacerbated by Evaluation data The following diagnostics were reviewed and interpreted by me:: lab results, radiology exam(s) and EKG tracing(s) (EKG manual reading, my interpretation: sinus rhythm, no ST elevation, no acute ischemic changes, interpreted as normal.) Lab and/or radiology exams considered but not ordered:: None Interpretation Summary: RADIOLOGY Chest X-Ray: Pending official radiology report. Medications / Prescriptions Medications or Prescriptions considered but not ordered:: None Medication administrations:: Medication Administration History Discontinued Medications Hydrocodone Bitart/Acetaminophen (Hydrocodone/Apap 5/325 Tablet) 1 tab PO X1 ONE Stop: 06/26/25 02:16 Last Admin: 10/05/24 02:37 Dose: Not Given Documented By: GUNNER Non-Admin Reason: Patient Refused Al Hydrox/Mg Hydrox/Simethicone (Mg Hyd/Al Hyd/Damon (Maalox Reg) Susp 30 Ml Udc) 30 ml PO X1 ONE Stop: 10/05/24 00:31 Last Admin: 10/05/24 00:53 Dose: 30 ml Documented By: Aspirin (Aspirin 325 Mg Tablet) 325 mg PO X1 ONE Stop: 10/05/24 00:31 Last Admin: 10/05/24 00:53 Dose: 325 mg Documented By: Famotidine (Famotidine 20 Mg Tablet) 40 mg PO X1 ONE Stop: 10/05/24 00:31 Last Admin: 10/05/24 00:53 Dose: 40 mg Documented By: Ketorolac Tromethamine (Ketorolac Inj 30 Mg/Ml Vial) 30 mg IM X1 ONE Stop: 10/05/24 02:16 Last Admin: 10/05/24 02:32 Dose: 30 mg Documented By: DIMPLE See above if any. Consultations Consultation(s) initiated? (list below): No Diagnosis Chest Pain Differential Diagnosis: stable angina, unstable angina pectoris, atypical chest pain, st elevation myocardial infarction, costochondritis, chest pain, biliary colic and other (GERD) Most likely diagnosis given after review of the tests above:: Chest wall pain, Costochondritis Admission Indicated Admission indicated?: not indicated Explain why admission is indicated or not indicated:: Patient does not meet admission criteria. Admission Request Was there a request for admission?: No Disposition Plan Disposition Plan: Discharge Discharge Attestation Discharge Attestation: The patient and all family members were given an opportunity to ask questions and understood the discharge instructions. Discharge instructions specifically effects, indications for sooner follow up or return to the emergency department, and the expected course of current diagnosis. Patient condition: Stable Discharge Plan Plan Patient Disposition: HOME (Self Care) Prescriptions/Referrals Prescriptions/Med Rec: New ibuprofen 600 mg tablet 600 mg PO Q6H PRN (Reason: pain) Qty: 30 0RF No Action metformin 1,000 mg Tablet 1,000 mg PO HS cyclobenzaprine 10 mg tablet 10 mg PO TID PRN (Reason: muscle spasm) Qty: 10 0RF ibuprofen 600 mg tablet 600 mg PO Q8H PRN (Reason: pain) Qty: 20 0RF acetaminophen 500 mg capsule 500 mg PO Q6H PRN (Reason: pain) Qty: 30 0RF atorvastatin 10 mg tablet 10 mg PO HS Patient Comments: TAKE 1 TABLET BY MOUTH EVERY DAY AT BEDTIME FOR CHOLESTEROL dexlansoprazole 60 mg capsule,biphase delayed releas 60 mg PO DAILY Patient Comments: TAKE 1 CAPSULE BY MOUTH DAILY 1/2 HOUR BEFORE A MEAL FOR STOMACH mirabegron 25 mg tablet extended release 24 hr 25 mg PO DAILY Patient Comments: TAKE 1 TABLET BY MOUTH EVERY DAY FOR URINE pantoprazole [Protonix] [address] for susp in packet 40 mg PO QDAY Qty: 30 0RF Referrals: Liv Aldrich PA-C [Primary Care Provider] - In 1 week Problem List Clinical Impression: Chest wall pain, Costochondritis Patient/Caregiver Discharge Instructions Education Materials: Costochondritis Print Language: Persian Stand Alone Forms: Vera Award Info., Patient Portal Info Letter
[2024-10-05] MEDS: KETOROLAC INJ 30 MG/ML VIAL IM (02:32)
== END 2024-10-05 02:40 | disposition home or self-care (01) ==
PROVIDERS: Physician Assistant; Emergency Provider Emergency Medicine; PCP Physician Assistant
DX: M94.0 Chondrocostal junction syndrome [Tietze] (principal); E78.00 Pure hypercholesterolemia, unspecified; Z87.891 Personal history of nicotine dependence
CPT/HCPCS: 36415; 71045; 80053; 83690; 83880; 84484; 85025; 93005; 96372; 99283; J1885; A9270

== ENCOUNTER → 2024-11-21 | Outpatient (CLI) | payer MEDICAID, SELFPAY ==
--- NOTE | 2024-11-21 09:30 | XR_ITS ---
Examination: Upper GI series with KUB Esophagram standard Fluoroscopy 23 spot fluoroscopic films of the esophagus and stomach Date and time: November 21, 2024 0923 hours INDICATIONS: Abdominal pain nausea heartburn difficulty swallowing beginning 4.5 months ago TECHNIQUE AND FINDINGS: Patient swallowed thin barium with 23 spot fluoroscopic films of the esophagus and stomach Fluoroscopy 0.23 minutes Primary peristaltic esophageal waves noted There is moderate intermittent gastroesophageal reflux. No constricting esophageal lesion Limited KUB demonstrates moderate stool throughout the colon No gastric mass deformity or ulceration There is spasm and irritability of the duodenal bulb with no filling in the duodenal sweep even on delayed films IMPRESSION: Moderate intermittent gastroesophageal reflux No constricting esophageal lesion Severe spasm duodenal bulb consistent with active peptic disease, follow-up upper GI series in 3 months recommended post treatment
== END | disposition home or self-care (01) ==
LOC: CDIM 09:05
PROVIDERS: PCP Physician Assistant; Referring Provider Physician Assistant; Visit Provider Physician Assistant
DX: K21.9 Gastro-esophageal reflux disease without esophagitis (principal); K59.89 Other specified functional intestinal disorders
CPT/HCPCS: 74240; A4649

== ENCOUNTER 2024-11-24 04:02 | Emergency (ER) | payer MEDICAID, SELFPAY ==
[2024-11-24 04:03] VITALS: BMI 29.0
[2024-11-24 04:16] VITALS: BP 124/80; PULSE 74; RESP 17; TEMP 36.8; O2SAT 97
--- NOTE | 2024-11-24 04:32 | XR_ITS ---
Examination: CT brain head without contrast. 2-D sagittal coronal reconstructions Date and time of exam:November 22, 2024, 0456 hours Comparison February 11, 2008 INDICATIONS: Blurred vision and dizziness sinus congestion and pressure in the head one week CTDI: vol (mGy):45.40 DLP: (mGycm):799 Technique: Multiple CT axial sections of the brain have been obtained, 5 mm slice thickness. Contrast has not been administered. 2-D sagittal, coronal reconstructions have been obtained Low dose protocols were performed. One or more of the following dose reduction techniques were used; automated exposure control, adjustment of the mA and/or KV according to patient size, use of iterative reconstruction technique. Findings: No significant ventricular enlargement. Intra-axial or extra-axial hemorrhage density is not seen. No mass effect or midline shift Basal cisterns are not remarkable. Fourth ventricle is midline. Cranial vault intact. Impression: Negative for acute hemorrhage, mass effect or midline shift Advise clinical correlation and follow up accordingly
--- NOTE | 2024-11-24 05:25 | PRELIM_ITS ---
CT scan of the head without intravenous contrast (axial sections with sagittal and coronal reformats) November 24, 2024 0456 hours Clinical history: Blurry vision, dizziness, sinus congestion No prior study is available for comparison. Findings: There is no evidence of intracranial hemorrhage, mass effect or midline shift. There are periventricular white matter hypodensities, compatible with chronic small vessel ischemia. The CSF spaces are prominent consistent with volume loss. The calvarium is unremarkable. The mastoid air cells and the visualized paranasal sinuses are clear. Impression: No evidence of intracranial hemorrhage, mass effect or midline shift. Periventricular chronic small vessel ischemia and volume loss. Report Electronically Signed By: Dionicio Hansen 11/24/2024 5:25:32 AM [EST]
--- NOTE | 2024-11-24 05:33 | PD.EDHA ---
ED Headache RME/HPI General Chief Complaint: General Adult/Misc Complain Stated Complaint: PRESURE IN BILATERAL ISLAM Time Seen by Provider: 11/24/24 04:32 Arrival date/time: 11/24/24 04:02 53F with history of DM (no on insulin) presents to ED with 3 days of head pressure but not pain, as well as intermittent blurry vision and congestion, and dizziness. Patient denies AMS, seizures, slurred speech, weakness, and fevers/chills. Patient has had sinus infections before and states this feels similar. Limitations: no limitations Related Data Home Medications ?Medication ?Instructions ?Recorded ?Confirmed metformin 1,000 mg tablet 1,000 mg PO HS 04/02/21 11/24/23 atorvastatin 10 mg tablet 10 mg PO HS 11/24/23 11/24/23 dexlansoprazole 60 mg 60 mg PO DAILY 11/24/23 11/24/23 capsule,biphase delayed release mirabegron 25 mg tablet,extended 25 mg PO DAILY 11/24/23 11/24/23 release 24 hr Previous Rx's ?Medication ?Instructions ?Recorded acetaminophen 500 mg capsule 500 mg PO Q6H PRN pain #30 caps 06/07/24 cyclobenzaprine 10 mg tablet 10 mg PO TID PRN muscle spasm #10 06/07/24 tabs ibuprofen 600 mg tablet 600 mg PO Q8H PRN pain #20 tabs 06/07/24 pantoprazole 40 mg granules 40 mg PO QDAY #30 ea 07/30/24 delayed-release for susp in packet (Protonix) ibuprofen 600 mg tablet 600 mg PO Q6H PRN pain #30 tabs 10/05/24 doxycycline hyclate 100 mg tablet 100 mg PO BID 7 days #14 tabs 11/24/24 prednisone 20 mg tablet 20 mg PO BID 3 days #6 tabs 11/24/24 Allergies Allergy/AdvReac Type Severity Reaction Status Date / Time acetaminophen (From Nursery) Allergy Verified 11/24/24 04:13 hydrocodone (From Nursery) Allergy Verified 11/24/24 04:13 Review of Systems Review of Systems Systems Reviewed: All systems reviewed, normal except as documented Constitutional Constitutional: Reports system reviewed and no additional complaints, except as documented, Reports as per HPI, Denies fever(s) and Reports headache(s) (pressure) Eyes Eyes: Reports as per HPI and Reports blurry vision ENT Ears, Nose, Mouth, and Throat: Reports as per HPI, Denies disequilibrium, Reports headache(s) (pressure) and Reports nasal congestion Cardiovascular Cardiovascular: Reports system reviewed and no additional complaints, except as documented, Denies chest pain and Denies dyspnea Respiratory Respiratory: Reports system reviewed and no additional complaints, except as documented, Denies cough and Denies dyspnea Gastrointestinal Gastrointestinal: Reports system reviewed and no additional complaints, except as documented, Denies abdominal pain, Denies nausea and Denies vomiting Neurologic Neurologic: Reports system reviewed and no additional complaints, except as documented, Denies confusion, Denies disequilibrium and Reports headache(s) (pressure) Psychiatric Psychiatric: Denies confusion Past Medical History Past Medical History NEUROLOGIC: Negative Neurological Disorders or Seizures CARDIAC: Positive Cardiac Disorders and Hypercholesterolemia; Negative Congestive Heart Failure RESPIRATORY: Negative Chronic Obstructive Pulmonary Disease (COPD), Asthma, Emphysema, Pneumonia or Tuberculosis GASTROINTESTINAL: Positive Gastroesophageal Reflux Disease; Negative Gastrointestinal Disorders GENITOURINARY: Positive Genitourinary Disorders (over reactive uinary bladder); Negative Renal Disease MUSCULOSKELETAL: Negative Musculoskeletal Disorders ENDOCRINE: Positive Endocrine Disorders and Diabetes Mellitus Type 2; Negative Diabetes Mellitus Type 1 HEMATOLOGIC: Negative Blood Disorders or Sickle Cell Disease OTHER HISTORY: Positive Chicken Pox; Negative Blood Transfusions, Anesthesia Reactions or Cancer Surgical History SURGICAL: Positive Tonsillectomy, Hysterectomy and Tubal Ligation; Negative Joint Replacement (bilateral feet surgery to remove extra bone ) Social History SMOKING STATUS: Current every day smoker ED Exam General Limitations: Present no limitations General appearance: Present alert and in no apparent distress Head Head exam: Present atraumatic Eye Eye exam: Present normal appearance, PERRL and EOMI ENT ENT exam: Present normal oropharynx and mucous membranes moist Expanded ENT Exam TM/Canal exam: Bilateral TM: bulging and effusion Nose exam: Present sinus tenderness Neck Neck exam: Present normal inspection, full ROM and trachea midline Chest Chest inspection: Present normal inspection and symmetric chest wall rise Respiratory Respiratory exam: Present normal lung sounds bilaterally Cardiovascular Cardiovascular exam: Present regular rate, normal rhythm and normal heart sounds Abdominal Exam Abdominal exam: Present soft and normal bowel sounds Extremities Exam Extremities exam: Present normal inspection and full ROM Back Exam Back exam: Present normal inspection and full ROM Neurological Exam Neurological exam: Present alert, oriented X3 and CN II-XII intact Psychiatric Psychiatric exam: Present normal affect and normal mood Skin Skin exam: Present warm, dry, intact and normal color Course Quality Measures none Orders Category Date Time Status CT head/brain wo con Stat Exams 11/24/24 04:32 Taken Dexamethasone Inj [Decadron Inj] Med 11/24/24 05:32 Once 10 mg PO X1 ONE Doxycycline [Vibramycin] Med 11/24/24 05:32 Once 100 mg PO X1 ONE Vital Signs Vital signs: Vital Signs Temperature 98.2 F 11/24/24 04:16 Pulse Rate 74 11/24/24 04:16 Respiratory Rate 17 11/24/24 04:16 Blood Pressure 124/80 11/24/24 04:16 Pulse Oximetry (%) 97 11/24/24 04:16 Oxygen Delivery Method Room Air 11/24/24 04:16 O2 at 97% on RA and WNLs Headache MDM Narrative MDM Narrative:: 53F with history of DM (no on insulin) presents to ED with 3 days of head pressure but not pain, as well as intermittent blurry vision and congestion, and dizziness. Patient denies AMS, seizures, slurred speech, weakness, and fevers/chills. Patient has had sinus infections before and states this feels similar. Physical exam reveals sinus tenderness. Bilateral TM effusions and bulging, but no redness. CN II-XII grossly normal. Normal pupil response and EOM. Neg pronator drift. Gait normal. Speech normal. Normal WOB. Patient is afebrile, calm, and alert. No neg changes after [address] telerad read unremarkable. Likely sinusitis. Counseled if worsening and/or symptoms persist, can return for MRI in AM or later. Patient states she doesn't feel bad, and will return if needed. Stroke education given. Patient data External records reviewed:: [facility] previous records Clinical information provided by:: patient Social determinants that could affect healthcare access:: none Patient has the following chronic illnesses:: DM How is presenting disease/condition affected by chronic disease/condition?: exacerbated by Evaluation data The following diagnostics were reviewed and interpreted by me:: radiology exam(s) Lab and/or radiology exams considered but not ordered:: ordered Interpretation Summary: above Medications / Prescriptions Medications or Prescriptions considered but not ordered:: ordered Medication administrations:: Medication Administration History Discontinued Medications Dexamethasone Sodium Phosphate (Dexamethasone Sod Phos Inj 10 Mg/Ml Vial) 10 mg PO X1 ONE Stop: 11/24/24 05:33 Doxycycline Hyclate (Doxycycline 100 Mg Tablet) 100 mg PO X1 ONE Stop: 11/24/24 05:33 above Consultations Consultation(s) initiated? (list below): No Diagnosis Differential diagnosis headache: migraine, tension headache, subarachnoid hemorrhage, headache, meningitis, sinusitis, postconcussion syndrome and other (CVA/TIA) Most likely diagnosis given after review of the tests above:: sinusitis Admission Indicated Admission indicated?: not indicated Explain why admission is indicated or not indicated:: outpatient Admission Request Was there a request for admission?: No Disposition Plan Disposition Plan: Discharge Discharge Attestation Discharge Attestation: The patient and all family members were given an opportunity to ask questions and understood the discharge instructions. Discharge instructions specifically effects, indications for sooner follow up or return to the emergency department, and the expected course of current diagnosis. Patient condition: Stable Discharge Plan Plan Patient Disposition: HOME (Self Care) Discharge Disposition comment: Stable Prescriptions/Referrals Prescriptions/Med Rec: New doxycycline hyclate 100 mg tablet 100 mg PO BID 7 Days Qty: 14 0RF prednisone 20 mg tablet 20 mg PO BID 3 Days Qty: 6 0RF No Action metformin 1,000 mg Tablet 1,000 mg PO HS cyclobenzaprine 10 mg tablet 10 mg PO TID PRN (Reason: muscle spasm) Qty: 10 0RF ibuprofen 600 mg tablet 600 mg PO Q8H PRN (Reason: pain) Qty: 20 0RF acetaminophen 500 mg capsule 500 mg PO Q6H PRN (Reason: pain) Qty: 30 0RF ibuprofen 600 mg tablet 600 mg PO Q6H PRN (Reason: pain) Qty: 30 0RF atorvastatin 10 mg tablet 10 mg PO HS Patient Comments: TAKE 1 TABLET BY MOUTH EVERY DAY AT BEDTIME FOR CHOLESTEROL dexlansoprazole 60 mg capsule,biphase delayed releas 60 mg PO DAILY Patient Comments: TAKE 1 CAPSULE BY MOUTH DAILY 1/2 HOUR BEFORE A MEAL FOR STOMACH mirabegron 25 mg tablet extended release 24 hr 25 mg PO DAILY Patient Comments: TAKE 1 TABLET BY MOUTH EVERY DAY FOR URINE pantoprazole [Protonix] [address] for susp in packet 40 mg PO QDAY Qty: 30 0RF Problem List Clinical Impression: Sinusitis Patient/Caregiver Discharge Instructions Education Materials: Causes of Sinusitis, ED Sinusitis (Antibiotic Treatment) Additional Instructions: Please follow-up with PCP within 24-48 hours and return immediately if symptoms worsen. Print Language: Namibian Stand Alone Forms: Patient Portal Info Letter PA/SENIOR ELECTRICAL CONTROLS ENGINEER Supervising Physician PA/SENIOR ELECTRICAL CONTROLS ENGINEER Supervising Physician: Dr. Macias
[2024-11-24] MEDS: DOXYCYCLINE 100 MG TABLET PO (05:49)
[2024-11-24] MEDS: DEXAMETHASONE SOD PHOS INJ 10 MG/ML VIAL PO (05:49)
[2024-11-24 05:51] VITALS: RESP 16
== END 2024-11-24 05:51 | disposition home or self-care (01) ==
LOC: SERX 07:03
PROVIDERS: Emergency Provider Emergency Medicine
DX: J32.9 Chronic sinusitis, unspecified (principal); E11.9 Type 2 diabetes mellitus without complications; E78.00 Pure hypercholesterolemia, unspecified; F17.210 Nicotine dependence, cigarettes, uncomplicated; Z79.84 Long term (current) use of oral hypoglycemic drugs; Z79.899 Other long term (current) drug therapy; Z88.6 Allergy status to analgesic agent; Z88.5 Allergy status to narcotic agent
CPT/HCPCS: 70450; 99283; J1100; A9270

== ENCOUNTER 2025-01-02 23:45 | Emergency (ER) | payer MEDICAID, SELFPAY ==
--- NOTE | 2025-01-02 23:46 | EKG_ITS ---
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
[2025-01-02 23:52] VITALS: BP 145/81; PULSE 82; RESP 18; TEMP 36.2; O2SAT 96
--- NOTE | 2025-01-02 23:56 | PD.EDRME ---
Rapid Medical Screening Exam RME Arrival date/time: 01/02/25 23:45 Chief Complaint: Chest Pain Vital signs: Vital Signs Temperature 97.2 F 01/02/25 23:52 Pulse Rate 82 01/02/25 23:52 Respiratory Rate 18 01/02/25 23:52 Blood Pressure 145/81 H 01/02/25 23:52 Pulse Oximetry (%) 96 01/02/25 23:52 Oxygen Delivery Method Room Air 01/02/25 23:52 E Narrative: Intermittent sharp left-sided chest pain since yesterday. No other symptoms reported.
--- NOTE | 2025-01-02 23:56 | XR_ITS ---
Examination: AP chest single view Technique one AP portable upright chest single view Date and time: January 03, 2025 0025 hrs., Comparison October 05, 2024 Indications: Chest pain today Findings: Normal heart size Minor subsegmental atelectasis left base No pneumonia or pulmonary edema Impression: Minor subsegmental atelectasis left base
[2025-01-03 00:06] VITALS: BMI 28.7
--- NOTE | 2025-01-03 00:26 | PD.EDCHEST ---
ED Chest Pain RME/HPI General Chief Complaint: Chest Pain Stated Complaint: CHEST PAIN Time Seen by Provider: 01/03/25 00:00 Source: patient Arrival date/time: 01/02/25 23:45 Mode of arrival: ambulatory RME / HPI RME / HPI narrative: Intermittent sharp left-sided chest pain since yesterday. No other symptoms reported. Ms. Vaughan is a 54-year-old female with past medical history of [id number]-goqwseaje diabetes mellitus type 2, hyperlipidemia, peptic ulcer disease, overactive bladder and chronic active smoker who presented to [facility] emergency department 01/02/2025 with a chief complaint of left-sided chest pain. Patient complains of on and off pain since yesterday on her left side, sharp stabbing radiating to her left axilla, denies any nausea vomiting diaphoresis palpitations dizziness syncope and near syncope. Patient has no family history of cardiac disease. Related Data Home Medications ?Medication ?Instructions ?Recorded ?Confirmed metformin 1,000 mg tablet 1,000 mg PO HS 04/02/21 11/24/23 atorvastatin 10 mg tablet 10 mg PO HS 11/24/23 11/24/23 dexlansoprazole 60 mg 60 mg PO DAILY 11/24/23 11/24/23 capsule,biphase delayed release mirabegron 25 mg tablet,extended 25 mg PO DAILY 11/24/23 11/24/23 release 24 hr Previous Rx's ?Medication ?Instructions ?Recorded acetaminophen 500 mg capsule 500 mg PO Q6H PRN pain #30 caps 06/07/24 cyclobenzaprine 10 mg tablet 10 mg PO TID PRN muscle spasm #10 06/07/24 tabs ibuprofen 600 mg tablet 600 mg PO Q8H PRN pain #20 tabs 06/07/24 pantoprazole 40 mg granules 40 mg PO QDAY #30 ea 07/30/24 delayed-release for susp in packet (Protonix) ibuprofen 600 mg tablet 600 mg PO Q6H PRN pain #30 tabs 10/05/24 Allergies Allergy/AdvReac Type Severity Reaction Status Date / Time acetaminophen (From [place]) Allergy Verified 01/02/25 23:46 hydrocodone (From [place]) Allergy Verified 01/02/25 23:46 Review of Systems Review of Systems Systems Reviewed: All systems reviewed, normal except as documented Past Medical History Past Medical History NEUROLOGIC: Negative Neurological Disorders or Seizures CARDIAC: Positive Cardiac Disorders and Hypercholesterolemia; Negative Congestive Heart Failure RESPIRATORY: Negative Chronic Obstructive Pulmonary Disease (COPD), Asthma, Emphysema, Pneumonia or Tuberculosis GASTROINTESTINAL: Positive Gastroesophageal Reflux Disease; Negative Gastrointestinal Disorders GENITOURINARY: Positive Genitourinary Disorders (over reactive uinary bladder); Negative Renal Disease MUSCULOSKELETAL: Negative Musculoskeletal Disorders ENDOCRINE: Positive Endocrine Disorders and Diabetes Mellitus Type 2; Negative Diabetes Mellitus Type 1 HEMATOLOGIC: Negative Blood Disorders or Sickle Cell Disease OTHER HISTORY: Positive Chicken Pox; Negative Blood Transfusions, Anesthesia Reactions or Cancer Surgical History SURGICAL: Positive Tonsillectomy, Hysterectomy and Tubal Ligation; Negative Joint Replacement (bilateral feet surgery to remove extra bone ) Social History SMOKING STATUS: Current every day smoker ED Exam Narrative Physical exam: Physical Exam General: Awake and in no acute distress. Conversational and non-toxic appearing. HEENT: Normocephalic, atraumatic, mucous membranes moist. Heart: Regular rate and rhythm, no murmurs. Lungs: Clear to auscultation with no wheezing or crackles. Abdomen: Soft, nondistended, nontender, positive bowel sounds. ?No guarding or rebound tenderness. Neurologic: Alert and oriented x3, no gross neurological deficit, and patient able to move all 4 extremities. Extremities: No edema. Skin: No rash or ecchymoses. Course Quality Measures none Orders Category Date Time Status EKG (ED ONLY) *Do not use* NOW Care 01/02/25 23:46 Completed Insert IV NOW Care 01/03/25 00:25 Active CXR [XR chest 1V] Stat Exams 01/02/25 23:56 Taken EKG (ED Only) Stat Exams 01/02/25 23:46 Ordered Alcohol, Blood Medical Stat Lab 01/03/25 00:11 Completed BNP [B-Type Natriuretic Peptide] Stat Lab 01/02/25 23:56 Completed CBC Stat Lab 01/02/25 23:56 Completed CMP [Comprehensive Metabolic Panel] Stat Lab 01/02/25 23:56 Completed Drug Screen,Urine Stat Lab 01/03/25 00:27 Completed INR [Prothrombin Time with INR] Stat Lab 01/03/25 00:11 Completed PTT [Partial Thromboplastin Time] Stat Lab 01/03/25 00:11 Completed Troponin I Stat Lab 01/02/25 23:56 Completed Troponin I Stat Lab 01/03/25 02:33 Completed Famotidine Inj [Pepcid Inj] Med 01/03/25 00:15 Discontinued 20 mg IVP X1 ONE Ketorolac Inj [Toradol Inj] Med 01/02/25 23:57 Discontinued 30 mg IM X1 ONE Lidocaine 2% Viscous [Xylocaine 2% Viscous] Med 01/03/25 00:15 Discontinued 15 ml PO X1 ONE Nitroglycerin [Nitrostat 1/150] Med 01/03/25 00:15 Discontinued 0.4 mg SL X1 ONE mg Hyd/Al Hyd/Damon Susp [Maalox Susp] Med 01/03/25 00:15 Discontinued 30 ml PO X1 ONE Vital Signs Vital signs: Vital Signs Temperature 97.2 F 01/02/25 23:52 Pulse Rate 82 01/02/25 23:52 Respiratory Rate 18 01/02/25 23:52 Blood Pressure 145/81 H 01/02/25 23:52 Pulse Oximetry (%) 96 01/02/25 23:52 Oxygen Delivery Method Room Air 01/02/25 23:52 Chest Pain MDM Narrative MDM Narrative:: # Cardiac chest pain # Peptic ulcer disease, gastritis 54-year-old female with past medical history of sdw-adebfbg-zdelaqsyj diabetes mellitus type 2, hyperlipidemia, peptic ulcer disease and overactive bladder presented to ED for chest pain. Patient describes chest pain on the left side stabbing in sensation radiating to axilla, on and off since yesterday, came to ED because of worsening of pain. Workup: EKG shows sinus rhythm, no acute ST-T changes, QTc 415 CBC WBC 13.2, hemoglobin and platelet within normal limits. Coags within normal limits Chemistry panel remarkable for chloride 108, BUN 6, glucose 171, alk phos 142. Urine tox screen positive for fentanyl, blood alcohol level negative Chest x-ray negative for pneumonia Patient was given nitro 0.4 x 1, Maalox 30 mL x 1, lidocaine 15 mL x 1 and IV famotidine Chest pain resolved Repeat troponin 0230: Negative less than 0.002 HEART score: 3 points, low score, risk of MACE 0.9-1.7% Patient stable to be discharged, recommend outpatient cardiology follow-up Recommend outpatient gastroenterology follow-up as scheduled Case discussed with Attending Physician Dr. Gilberto Ziegler MD Internal Medicine PGY-2 Disclaimer: This note was dictated by speech recognition. Minor errors in circulation representative may be present due to voice recognition software. Patient data External records reviewed:: [facility] previous records Clinical information provided by:: patient Social determinants that could affect healthcare access:: none Patient has the following chronic illnesses:: As above How is presenting disease/condition affected by chronic disease/condition?: caused by Evaluation data The following diagnostics were reviewed and interpreted by me:: lab results, radiology exam(s) and EKG tracing(s) Lab and/or radiology exams considered but not ordered:: None Interpretation Summary: EKG shows sinus rhythm, QTc 415 CBC WBC 13.2, hemoglobin and platelet within normal limits. Coags within normal limits Chemistry panel remarkable for chloride 108, BUN 6, glucose 171, alk phos 142. Urine tox screen positive for fentanyl, blood alcohol level negative Chest x-ray negative for pneumonia Troponin negative x 2 Medications / Prescriptions Medications or Prescriptions considered but not ordered:: None Medication administrations:: Medication Administration History Discontinued Medications Al Hydrox/Mg Hydrox/Simethicone (Mg Hyd/Al Hyd/Damon (Maalox Reg) Susp 30 Ml Udc) 30 ml PO X1 ONE Stop: 01/03/25 00:16 Last Admin: 01/03/25 00:38 Dose: 30 ml Documented By: OSIEL Famotidine (Famotidine Inj 10 Mg/Ml Vial 2 Ml) 20 mg IVP X1 ONE Stop: 01/03/25 00:16 Last Admin: 01/03/25 00:38 Dose: 20 mg Documented By: OSIEL Ketorolac Tromethamine (Ketorolac Inj 30 Mg/Ml Vial) 30 mg IM X1 ONE Stop: 01/02/25 23:58 Last Admin: 01/03/25 00:06 Dose: Not Given Documented By: OSIEL Non-Admin Reason: Cancelled by Provider Lidocaine HCl (Lidocaine Viscous 2% 15 Ml Udc) 15 ml PO X1 ONE Stop: 01/03/25 00:16 Last Admin: 01/03/25 00:38 Dose: 15 ml Documented By: OSIEL Nitroglycerin (Nitroglycerin 0.4 Mg Subl Btl #25) 0.4 mg SL X1 ONE Stop: 01/03/25 00:16 Last Admin: 01/03/25 00:37 Dose: 0.4 mg Documented By: OSIEL As above Consultations Consultation(s) initiated? (list below): No Diagnosis Chest Pain Differential Diagnosis: stable angina, unstable angina pectoris, st elevation myocardial infarction and chest pain Most likely diagnosis given after review of the tests above:: Cardiac chest pain Admission Indicated Admission indicated?: not indicated Admission Request Was there a request for admission?: No Disposition Plan Disposition Plan: Discharge Discharge Attestation Discharge Attestation: The patient and all family members were given an opportunity to ask questions and understood the discharge instructions. Discharge instructions specifically effects, indications for sooner follow up or return to the emergency department, and the expected course of current diagnosis. Patient condition: Stable Discharge Plan Plan Patient Disposition: HOME (Self Care) Patient condition on transfer: Stable Health Concerns: - You were seen in the emergency department today for chest pain, your workup in the ER today was negative for myocardial infarction, we did a EKG and troponin levels which were negative. You do have risk factors for possible heart disease, we recommend establishing care with concrete grinder operator outpatient and obtaining a stress test. - You do have history of peptic ulcer disease, your symptoms can also be related to gastritis/esophagitis, avoid spicy foods, eat peptic ulcer/bland diet. - We have made no changes to your medications, follow-up with your primary care physician within 1 week. Discussed all the lab and radiology findings with your primary care physician. - Return to emergency department if your symptoms worsen. Prescriptions/Referrals Prescriptions/Med Rec: No Action metformin 1,000 mg Tablet 1,000 mg PO HS cyclobenzaprine 10 mg tablet 10 mg PO TID PRN (Reason: muscle spasm) Qty: 10 0RF ibuprofen 600 mg tablet 600 mg PO Q8H PRN (Reason: pain) Qty: 20 0RF acetaminophen 500 mg capsule 500 mg PO Q6H PRN (Reason: pain) Qty: 30 0RF ibuprofen 600 mg tablet 600 mg PO Q6H PRN (Reason: pain) Qty: 30 0RF atorvastatin 10 mg tablet 10 mg PO HS Patient Comments: TAKE 1 TABLET BY MOUTH EVERY DAY AT BEDTIME FOR CHOLESTEROL dexlansoprazole 60 mg capsule,biphase delayed releas 60 mg PO DAILY Patient Comments: TAKE 1 CAPSULE BY MOUTH DAILY 1/2 HOUR BEFORE A MEAL FOR STOMACH mirabegron 25 mg tablet extended release 24 hr 25 mg PO DAILY Patient Comments: TAKE 1 TABLET BY MOUTH EVERY DAY FOR URINE pantoprazole [Protonix] [address] for susp in packet 40 mg PO QDAY Qty: 30 0RF Referrals: Pancho Harry MD [Physician, Cardiology] - In 1 week Liv Aldrich PA-C [Primary Care Provider, Family Practice] - In 1 week Problem List Clinical Impression: Chest pain, Gastritis Patient/Caregiver Discharge Instructions Discharge Activity: activity as tolerated Education Materials: Discharge Instructions- Eating ..., ED Chest Pain, Uncertain Cause Print Language: Telugu Stand Alone Forms: Vera Award Info., Patient Portal Info Letter
[2025-01-03 00:35] LABS: Basophils # (Auto) 0.1 Thou/mm3 (0.0-0.2); Basophils % (Auto) 1 % (0-2.5); Eosinophils # (Auto) 0.2 Thou/mm3 (0.0-0.5); Eosinophils % (Auto) 1 % (0-10); Hematocrit 40.9 % (36.0-46.0); Hemoglobin 13.4 g/dL (12.0-16.0); Immature Granulocytes Auto 0.04 Thou/mm3 (0.00-0.00); Lymphocytes # (Auto) 3.6 Thou/mm3 (1.0-4.8); Lymphocytes % (Auto) 27 % (10-50); Mean Corpuscular HGB Conc 32.8 g/dl (31.0-37.0); Mean Corpuscular Hemoglobin 27.9 pg (25.0-35.0); Mean Corpuscular Volume 85 fL (80-100); Monocytes # (Auto) 0.9 Thou/mm3 (0.0-0.8); Monocytes % (Auto) 7 % (0-12); Neutrophils # (Auto) 8.5 Thou/mm3 (1.8-7.7); Neutrophils % (Auto) 65 % (37-80); Nucleated Red Blood Cell # 0.00 Thou/mm3 (0.00-0.00); Nucleated Red Blood Cell % 0 /100 WBC (0); Platelet Count 323 Thou/mm3 (140-440); RDW Standard Deviation 44.5 fL (36.4-46.3); Red Blood Count 4.81 Miln/mm3 (4.00-5.20); White Blood Count 13.2 Thou/mm3 (3.6-11.0)
[2025-01-03 00:37] VITALS: BP 145/88; PULSE 76
[2025-01-03] MEDS: NITROGLYCERIN 0.4 MG SUBL BTL #25 SL (00:37)
[2025-01-03] MEDS: LIDOCAINE VISCOUS 2% 15 ML UDC PO (00:38)
[2025-01-03] MEDS: FAMOTIDINE INJ 10 MG/ML VIAL 2 ML 20 MG IVP (00:38)
[2025-01-03] MEDS: MG HYD/AL HYD/SIME (Maalox Reg) SUSP 30 ML UDC PO (00:38)
[2025-01-03 00:55] LABS: Amphetamine/Methamp Scrn,U Negative (Negative); Barbiturate Screen,Urine Negative (Negative); Benzodiazepines Screen,Urine Negative (Negative); Benzoylecgonine Screen, Ur Negative (Negative); Fentanyl Screen,Urine Positive (Negative); Opiate Screen,Urine Negative (Negative); THC Screen,Urine Negative (Negative)
[2025-01-03 00:58] LABS: B-Type Natriuretic Peptide 21 pg/mL (0-100); Troponin I < 0.002 ng/mL (0.0-0.045)
[2025-01-03 01:01] LABS: INR 1.0 (0.9-1.3); Partial Thromboplastin Time 22.6 Seconds (22.0-36.0); Prothrombin Time 10.8 Seconds (9.0-12.2)
[2025-01-03 01:02] LABS: Alanine Aminotransferase 23 U/L (10-49); Albumin, Serum 4.4 gm/dL (3.5-5.0); Albumin/Globulin Ratio 2.1 (1.2-2.2); Alcohol, Blood Medical < 3.0 mg/dL (0-10.0); Alkaline Phosphatase 142 U/L (46-116); Anion Gap 11 (7-16); Aspartate Amino Transferase 30 U/L (0-34); BUN/Creatinine Ratio 7 Ratio (12-20); Bilirubin,Total 0.5 mg/dL (0.3-1.2); Blood Urea Nitrogen 6 mg/dL (9-23); Calcium 9.7 mg/dL (8.3-10.6); Calcium (Corrected) 9.7 mg/dL (8.5-10.1); Carbon Dioxide 22.4 mMol/L (20.0-31.0); Chloride 108 mMol/L (98-107); Creatinine (Component) 0.9 mg/dL (0.6-1.3); Estimated Creatinine Clearance 65.3 mL/min (>60); Globulin 2.1 gm/dL (2.3-3.5); Glucose 171 mg/dL (74-106); Osmolality,Calculated 282 (275-295); Potassium 5.1 mMol/L (3.4-5.1); Sodium 141 mMol/L (136-145); Total Protein 6.5 gm/dL (5.7-8.2); eGFR > 60 See Note
[2025-01-03 01:22] VITALS: BP 130/86; PULSE 74; RESP 17; TEMP 36.4; O2SAT 96
[2025-01-03 03:01] LABS: Troponin I < 0.002 ng/mL (0.0-0.045)
[2025-01-03 03:18] VITALS: BP 153/79; PULSE 68; RESP 18; O2SAT 97
== END 2025-01-03 03:20 | disposition home or self-care (01) ==
PROVIDERS: Physician Assistant; Emergency Provider Emergency Medicine; PCP Physician Assistant
DX: R07.89 Other chest pain (principal); K29.70 Gastritis, unspecified, without bleeding; E11.9 Type 2 diabetes mellitus without complications; E78.5 Hyperlipidemia, unspecified; Z87.11 Personal history of peptic ulcer disease; N32.81 Overactive bladder; F17.200 Nicotine dependence, unspecified, uncomplicated
CPT/HCPCS: 36415; 71045; 80053; 80307; 80320; 83880; 84484; 85025; 85610; 85730; 93005; 96374; 99283; J3490; A9270; G0480

== ENCOUNTER 2025-01-18 00:54 | Emergency (ER) | payer MEDICAID, SELFPAY ==
[2025-01-18 00:56] VITALS: BMI 28.5
[2025-01-18 01:14] VITALS: BP 135/87; PULSE 95; RESP 18; TEMP 37.2; O2SAT 95
--- NOTE | 2025-01-18 01:18 | EKG_ITS ---
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
--- NOTE | 2025-01-18 01:43 | XR_ITS ---
EXAMINATION: PA chest single view TECHNIQUE: Upright PA chest single view Date and time: January 18, 2025, 0150 hours INDICATIONS: Nausea vomiting headaches chest pain coughing beginning 3 days ago FINDINGS: Normal heart size Lungs are clear. The osseous structures are intact IMPRESSION: No active disease
--- NOTE | 2025-01-18 01:50 | EDNOTE_ITS ---
Upper Respiratory Inf. RME/HPI General Chief Complaint: Nausea/Vomiting/Diarrhea Stated Complaint: NV CHEST PAIN Time Seen by Provider: 01/18/25 01:37 Arrival date/time: 01/18/25 00:54 54F with history of DM presents to ED with several days of DIAZ, cough, sore throat, fatigue, CP, burning ab pain, N/V, and dysuria. Patient went to PCP where a UTI was diagnosed and patient was prescribed Augmentin. Patient is most concerned about her acid reflux sensation. Limitations: no limitations Related Data Home Medications ?Medication ?Instructions ?Recorded ?Confirmed metformin 1,000 mg tablet 1,000 mg PO HS 04/02/2111/10 atorvastatin 10 mg tablet 10 mg PO HS 11/24/23 4 dexlansoprazole 60 mg 60 mg PO DAILY 11/24/2311/10 capsule,biphase delayed release mirabegron 25 mg tablet,extended 25 mg PO DAILY 11/24/23 release 24 hr Previous Rx's ?Medication ?Instructions ?Recorded acetaminophen 500 mg capsule 500 mg PO Q6H PRN pain #3 0 caps 06/07/24 cyclobenzaprine 10 mg tablet 10 mg PO TID PRN muscle s pasm #10 06/07/24 tabs ibuprofen 600 mg tablet 600 mg PO Q8H PRN pain #20 t abs 06/07/24 pantoprazole 40 mg granules 40 mg PO QDAY #30 ea 07/30 delayed-release for susp in packet (Protonix) ibuprofen 600 mg tablet 600 mg PO Q6H PRN pain #30 t abs 10/05/24 ondansetron 4 mg disintegrating 4 mg PO Q8H PRN nausea and 01/18/25 tablet vomiting #14 tabs Allergies Allergy/AdvReac Type Severity Reaction Status Date / Time hydrocodone (From [place]) Allergy Verified 01/02/25 23:46 Review of Systems Review of Systems Systems Reviewed: All systems reviewed, normal except as documented Constitutional Constitutional: Reports as per HPI and Reports fatigue ENT Ears, Nose, Mouth, and Throat: Reports as per HPI and Reports sore throat Cardiovascular Cardiovascular: Reports as per HPI and Reports chest pain Respiratory Respiratory: Reports as per HPI and Reports cough Gastrointestinal Gastrointestinal: Reports as per HPI, Reports abdominal pain, Reports nausea and Reports vomiting Genitourinary Genitourinary: Reports as per HPI and Reports dysuria Endocrine Endocrine: Reports fatigue Past Medical History Past Medical History NEUROLOGIC: Negative Neurological Disorders or Seizures CARDIAC: Positive Cardiac Disorders, Hypercholesterolemia and Hypertension; Negative Congestive Heart Failure RESPIRATORY: Negative Chronic Obstructive Pulmonary Disease (COPD), Asthma, Emphysema, Pneumonia or Tuberculosis GASTROINTESTINAL: Positive Gastroesophageal Reflux Disease; Negative Gastrointestinal Disorders GENITOURINARY: Positive Genitourinary Disorders (over reactive uinary bladder); Negative Renal Disease MUSCULOSKELETAL: Negative Musculoskeletal Disorders ENDOCRINE: Positive Endocrine Disorders and Diabetes Mellitus Type 2; Negative Diabetes Mellitus Type 1 HEMATOLOGIC: Negative Blood Disorders or Sickle Cell Disease OTHER HISTORY: Positive Chicken Pox; Negative Blood Transfusions, Anesthesia Reactions or Cancer Surgical History SURGICAL: Positive Tonsillectomy, Hysterectomy and Tubal Ligation; Negative Joint Replacement (bilateral feet surgery to remove extra bone ) Social History SMOKING STATUS: Current every day smoker ED Exam General Limitations: Present no limitations General appearance: Present alert and in no apparent distress Head Head exam: Present atraumatic Neck Neck exam: Present normal inspection, full ROM and trachea midline Chest Chest inspection: Present normal inspection and symmetric chest wall rise Respiratory Respiratory exam: Present normal lung sounds bilaterally Abdominal Exam Abdominal exam: Present soft; Absent tenderness Neurological Exam Neurological exam: Present alert and oriented X3 Psychiatric Psychiatric exam: Present normal affect and normal mood Skin Skin exam: Present warm, dry, intact and normal color Course Quality Measures none Orders Category Date Time Status Bedside COVID-19 Antigen Test NOW Care 01/18/25 01:18 Active EKG (ED ONLY) *Do not use* NOW Care 01/18/25 01:18 Completed EKG (ED Only) Stat Exams 01/18/25 01:18 Draft XR chest 1V portable Stat Exams 01/18/25 01:43 Taken CBC Stat Lab 01/18/25 01:46 Completed CMP [Comprehensive Metabolic Panel] Stat Lab 01/18/25 01:46 Completed Lactate (Lactic Acid) Stat Lab 01/18/25 01:46 Completed Procalcitonin Stat Lab 01/18/25 01:46 Completed Urinalysis, C/S if Indicated Stat Lab 01/18/25 02:18 Completed Famotidine [Pepcid] Med 01/18/25 01:42 Discontinued 40 mg PO X1 ONE Ketorolac Inj [Toradol Inj] Med 01/18/25 01:42 Discontinued 60 mg IM X1 ONE Ondansetron Odt [Zofran Odt] Med 01/18/25 01:42 Discontinued 4 mg PO X1 ONE Vital Signs Vital signs: Vital Signs Temperature 99.0 F 01/18/25 01:14 Pulse Rate 95 01/18/25 01:14 Respiratory Rate 18 01/18/25 01:14 Blood Pressure 135/87 H 01/18/25 01:14 Pulse Oximetry (%) 95 01/18/25 01:14 Oxygen Delivery Method Room Air 01/18/25 01:14 O2 at 95% on RA and WNLs Upper Respiratory Infection MDM Narrative MDM Narrative:: 54F with history of DM presents to ED with several days of DIAZ, cough, sore throat, fatigue, CP, burning ab pain, N/V, and dysuria. Patient went to PCP where a UTI was diagnosed and patient was prescribed Augmentin. Patient is most concerned about her acid reflux sensation. Physical exam reveals clear lungs and normal WOB. No ab tenderness. Patient is afebrile, calm, and alert. Speech normal. EKG is NSR. Wet CXR read unremarkable pending official report. Minimal leukocytosis but no gross anemia. CMP unremarkable. Procal/lactate normal. Swabs neg. UA clean. Likely viral URI/syndrome, but [place] should cover most of these infections such as sinusitis, CAP and UTI. Patient felt better after meds. Patient data External records reviewed:: [facility] previous records Clinical information provided by:: patient Social determinants that could affect healthcare access:: none Patient has the following chronic illnesses:: DM How is presenting disease/condition affected by chronic disease/condition?: exacerbated by Evaluation data The following diagnostics were reviewed and interpreted by me:: lab results, radiology exam(s) and EKG tracing(s) Lab and/or radiology exams considered but not ordered:: ordered Interpretation Summary: above Medications / Prescriptions Medications or Prescriptions considered but not ordered:: ordered Medication administrations:: Medication Administration History Discontinued Medications Famotidine (Famotidine 20 Mg Tablet) 40 mg PO X1 ONE Stop: 01/18/25 01:43 Last Admin: 01/18/25 02:14 Dose: 40 mg Documented By: JENNIFFER Ketorolac Tromethamine (Ketorolac Inj 60 Mg/2 Ml Vial) 60 mg IM X1 ONE Stop: 01/18/25 01:43 Last Admin: 01/18/25 02:14 Dose: 60 mg Documented By: DT Ondansetron HCl (Ondansetron Odt 4 Mg Tabrap) 4 mg PO X1 ONE; Protocol Stop: 01/18/25 01:43 Last Admin: 01/18/25 02:15 Dose: 4 mg Documented By: JENNIFFER above Consultations Consultation(s) initiated? (list below): No Diagnosis Upper Respiratory Differential Diagnosis: upper respiratory infection, croup, otitis media, sinusitis, viral infection, bronchitis, influenza, pharyngitis and other (viral syndrome, PNA) Most likely diagnosis given after review of the tests above:: viral syndrome Admission Indicated Admission indicated?: not indicated Admission Request Was there a request for admission?: No Disposition Plan Disposition Plan: Discharge Discharge Attestation Discharge Attestation: The patient and all family members were given an opportunity to ask questions and understood the discharge instructions. Discharge instructions specifically effects, indications for sooner follow up or return to the emergency department, and the expected course of current diagnosis. Patient condition: Stable Discharge Plan Plan Patient Disposition: HOME (Self Care) Discharge Disposition comment: Stable Prescriptions/Referrals Prescriptions/Med Rec: New ondansetron 4 mg tablet,disintegrating 4 mg PO Q8H PRN (Reason: nausea and vomiting) Qty: 14 0RF No Action metformin 1,000 mg Tablet 1,000 mg PO HS cyclobenzaprine 10 mg tablet 10 mg PO TID PRN (Reason: muscle spasm) Qty: 10 0RF ibuprofen 600 mg tablet 600 mg PO Q8H PRN (Reason: pain) Qty: 20 0RF acetaminophen 500 mg capsule 500 mg PO Q6H PRN (Reason: pain) Qty: 30 0RF ibuprofen 600 mg tablet 600 mg PO Q6H PRN (Reason: pain) Qty: 30 0RF atorvastatin 10 mg tablet 10 mg PO HS Patient Comments: TAKE 1 TABLET BY MOUTH EVERY DAY AT BEDTIME FOR CHOLESTEROL dexlansoprazole 60 mg capsule,biphase delayed releas 60 mg PO DAILY Patient Comments: TAKE 1 CAPSULE BY MOUTH DAILY 1/2 HOUR BEFORE A MEAL FOR STOMACH mirabegron 25 mg tablet extended release 24 hr 25 mg PO DAILY Patient Comments: TAKE 1 TABLET BY MOUTH EVERY DAY FOR URINE pantoprazole [Protonix] [address] for susp in packet 40 mg PO QDAY Qty: 30 0RF Referrals: Liv Aldrich PA-C [Primary Care Provider, Family Practice] - In 1 week Problem List Clinical Impression: Viral syndrome Patient/Caregiver Discharge Instructions Education Materials: ED Viral Syndrome (Adult) Additional Instructions: Please follow-up with PCP within 24-48 hours and return immediately if symptoms worsen. Ibuprofen/Tylenol can be used simultaneously for greater fever/pain control. Benadryl is good for cough, congestion, and sleep. Keep hydrated. Advance diet as tolerated. Print Language: [place] Citizen Stand Alone Forms: Patient Portal Info Letter PA/PICKLE CUTTER Supervising Physician PA/RANDI Supervising Physician: Dr. Hoffman
[2025-01-18 02:03] LABS: Lactate (Lactic Acid) 1.7 mMol/L (0.4-2.0)
[2025-01-18 02:07] LABS: Basophils # (Auto) 0.0 Thou/mm3 (0.0-0.2); Basophils % (Auto) 0 % (0-2.5); Eosinophils # (Auto) 0.1 Thou/mm3 (0.0-0.5); Eosinophils % (Auto) 1 % (0-10); Hematocrit 41.9 % (36.0-46.0); Hemoglobin 13.7 g/dL (12.0-16.0); Immature Granulocytes Auto 0.03 Thou/mm3 (0.00-0.00); Lymphocytes # (Auto) 2.6 Thou/mm3 (1.0-4.8); Lymphocytes % (Auto) 21 % (10-50); Mean Corpuscular HGB Conc 32.7 g/dl (31.0-37.0); Mean Corpuscular Hemoglobin 27.8 pg (25.0-35.0); Mean Corpuscular Volume 85 fL (80-100); Monocytes # (Auto) 0.8 Thou/mm3 (0.0-0.8); Monocytes % (Auto) 6 % (0-12); Neutrophils # (Auto) 8.9 Thou/mm3 (1.8-7.7); Neutrophils % (Auto) 71 % (37-80); Nucleated Red Blood Cell # 0.00 Thou/mm3 (0.00-0.00); Nucleated Red Blood Cell % 0 /100 WBC (0); Platelet Count 376 Thou/mm3 (140-440); RDW Standard Deviation 45.1 fL (36.4-46.3); Red Blood Count 4.92 Miln/mm3 (4.00-5.20); White Blood Count 12.5 Thou/mm3 (3.6-11.0)
[2025-01-18] MEDS: KETOROLAC INJ 60 MG/2 ML VIAL IM (02:14)
[2025-01-18] MEDS: FAMOTIDINE 20 MG TABLET 40 MG PO (02:14)
[2025-01-18] MEDS: ONDANSETRON ODT 4 MG TABRAP PO (02:15)
[2025-01-18 02:35] LABS: Alanine Aminotransferase 17 U/L (10-49); Albumin, Serum 4.5 gm/dL (3.5-5.0); Albumin/Globulin Ratio 2.1 (1.2-2.2); Alkaline Phosphatase 137 U/L (46-116); Anion Gap 12 (7-16); Aspartate Amino Transferase 20 U/L (0-34); BUN/Creatinine Ratio 7 Ratio (12-20); Bilirubin,Total 1.1 mg/dL (0.3-1.2); Blood Urea Nitrogen < 5 mg/dL (9-23); Calcium 9.4 mg/dL (8.3-10.6); Calcium (Corrected) 9.4 mg/dL (8.5-10.1); Carbon Dioxide 26.1 mMol/L (20.0-31.0); Chloride 106 mMol/L (98-107); Creatinine (Component) 0.7 mg/dL (0.6-1.3); Estimated Creatinine Clearance 83.7 mL/min (>60); Globulin 2.1 gm/dL (2.3-3.5); Glucose 99 mg/dL (74-106); Osmolality,Calculated 284 (275-295); Potassium 3.7 mMol/L (3.4-5.1); Procalcitonin 0.05 ng/ml (0.0-0.49); Sodium 144 mMol/L (136-145); Total Protein 6.6 gm/dL (5.7-8.2); eGFR > 60 See Note
[2025-01-18 02:52] LABS: Collection Type, Urine Clean Catch
[2025-01-18 03:15] LABS: Bacteria,Urine Rare; Bilirubin,Urine Negative (Negative); Blood,Urine Negative (Negative); Clarity,Urine Clear (Clear/Hazy); Color,Urine Lt-Yellow (Lt Yel-Yel); Culture Indicated,Urine Not Indicated; Glucose, Urine Negative (Negative); Ketones,Urine Negative (Negative); Leukocyte Esterase,Urine Positive (Negative); Nitrite,Urine Negative (Negative); PH,Urine 8.0 (5.0-7.0); Protein,Urine Negative (Neg - Trace); RBC,Urine 1 /hpf (0-3); Specific Gravity,Urine 1.008 (1.001-1.035); Squamous Epithelial Cell,Urine 1 /hpf (0-5); Urobilinogen,Urine Negative mg/dL (0.0-1.0); WBC,Urine 5 /hpf (0-5)
[2025-01-18 03:35] VITALS: BP 137/85; PULSE 82; RESP 16; TEMP 36.9; O2SAT 96
== END 2025-01-18 03:37 | disposition home or self-care (01) ==
PROVIDERS: Physician Assistant; Emergency Provider Emergency Medicine; PCP Physician Assistant
DX: B34.9 Viral infection, unspecified (principal); E78.00 Pure hypercholesterolemia, unspecified; I10 Essential (primary) hypertension; F17.210 Nicotine dependence, cigarettes, uncomplicated
CPT/HCPCS: 36415; 71045; 80053; 81001; 83605; 84145; 85025; 87811; 93005; 96372; 99283; J1885; Q0162; A9270

== ENCOUNTER 2025-01-19 19:33 | Emergency (ER) | payer MEDICAID, SELFPAY ==
[2025-01-19 19:35] VITALS: BMI 28.5
--- NOTE | 2025-01-19 19:38 | EKG_ITS ---
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
[2025-01-19 20:03] VITALS: BP 141/85; PULSE 95; RESP 19; TEMP 36.6; O2SAT 96
--- NOTE | 2025-01-19 20:11 | XR_ITS ---
Examination: Breast ultrasound, unilateral, right Date and time of exam: January 19, 2025, 2047 hours INDICATIONS: Right breast burning sensation today Technique: Real-time bishop scale ultrasonographic imaging performed right breast including all 4 quadrants as well as nipple retroareolar and axillary region. Findings: No cystic or solid mass IMPRESSION: BI-RADS Category 0: Incomplete: Needs additional evaluation Recommend diagnostic mammography follow-up
--- NOTE | 2025-01-19 20:11 | XR_ITS ---
EXAMINATION: PA chest single view TECHNIQUE: Upright PA chest single view Date and time: January 19, 2025, 2025 hours INDICATIONS: Chest pain shortness of breath today FINDINGS: Lungs are clear: Normal heart size The osseous factors are intact IMPRESSION: No active disease.
--- NOTE | 2025-01-19 20:11 | PD.EDRME ---
Rapid Medical Screening Exam RME Arrival date/time: 01/19/25 19:33 54F with history of DM presents to ED with 1 day of chest pain that radiates to R breast. Patient was here yesterday for similar complaints, but states today it feels different and not like her GERD. Chief Complaint: Chest Pain Vital signs: Vital Signs Temperature 98 F 01/19/25 20:03 Pulse Rate 95 01/19/25 20:03 Respiratory Rate 19 01/19/25 20:03 Blood Pressure 141/85 H 01/19/25 20:03 Pulse Oximetry (%) 96 01/19/25 20:03 Oxygen Delivery Method Room Air 01/19/25 20:03
[2025-01-19 20:34] LABS: Basophils # (Auto) 0.1 Thou/mm3 (0.0-0.2); Basophils % (Auto) 1 % (0-2.5); Eosinophils # (Auto) 0.1 Thou/mm3 (0.0-0.5); Eosinophils % (Auto) 1 % (0-10); Hematocrit 42.4 % (36.0-46.0); Hemoglobin 14.1 g/dL (12.0-16.0); Immature Granulocytes Auto 0.03 Thou/mm3 (0.00-0.00); Lymphocytes # (Auto) 1.7 Thou/mm3 (1.0-4.8); Lymphocytes % (Auto) 17 % (10-50); Mean Corpuscular HGB Conc 33.3 g/dl (31.0-37.0); Mean Corpuscular Hemoglobin 28.3 pg (25.0-35.0); Mean Corpuscular Volume 85 fL (80-100); Monocytes # (Auto) 0.8 Thou/mm3 (0.0-0.8); Monocytes % (Auto) 7 % (0-12); Neutrophils # (Auto) 7.8 Thou/mm3 (1.8-7.7); Neutrophils % (Auto) 74 % (37-80); Nucleated Red Blood Cell # 0.00 Thou/mm3 (0.00-0.00); Nucleated Red Blood Cell % 0 /100 WBC (0); Platelet Count 369 Thou/mm3 (140-440); RDW Standard Deviation 45.1 fL (36.4-46.3); Red Blood Count 4.99 Miln/mm3 (4.00-5.20); White Blood Count 10.5 Thou/mm3 (3.6-11.0)
[2025-01-19 20:52] LABS: Alanine Aminotransferase 30 U/L (10-49); Albumin, Serum 5.0 gm/dL (3.5-5.0); Albumin/Globulin Ratio 1.9 (1.2-2.2); Alkaline Phosphatase 136 U/L (46-116); Anion Gap 8 (7-16); Aspartate Amino Transferase 31 U/L (0-34); BUN/Creatinine Ratio 8 Ratio (12-20); Bilirubin,Total 1.1 mg/dL (0.3-1.2); Blood Urea Nitrogen 6 mg/dL (9-23); Calcium 9.9 mg/dL (8.3-10.6); Calcium (Corrected) 9.9 mg/dL (8.5-10.1); Carbon Dioxide 26.9 mMol/L (20.0-31.0); Chloride 106 mMol/L (98-107); Creatinine (Component) 0.8 mg/dL (0.6-1.3); Estimated Creatinine Clearance 73.2 mL/min (>60); Globulin 2.6 gm/dL (2.3-3.5); Glucose 99 mg/dL (74-106); Osmolality,Calculated 278 (275-295); Potassium 3.9 mMol/L (3.4-5.1); Sodium 141 mMol/L (136-145); Total Protein 7.6 gm/dL (5.7-8.2); Troponin I < 0.020 ng/mL (0.0-0.045); eGFR > 60 See Note
--- NOTE | 2025-01-19 22:09 | PD.EDCHEST ---
ED Chest Pain RME/HPI General Chief Complaint: Chest Pain Stated Complaint: CHEST PAIN WITH BURNING TO RIGHT BREAST Time Seen by Provider: 01/19/25 22:06 Arrival date/time: 01/19/25 19:33 RME / HPI RME / HPI narrative: 54F with history of DM presents to ED with 1 day of chest pain that radiates to R breast. Patient was here yesterday for similar complaints, but states today it feels different and not like her GERD. She is taking omeprazole every morning according to her is not working. Denies any other complaints no medication was taken prior to ER visit. Related Data Home Medications ?Medication ?Instructions ?Recorded ?Confirmed metformin 1,000 mg tablet 1,000 mg PO HS 04/02/21 11/24/23 atorvastatin 10 mg tablet 10 mg PO HS 11/24/23 11/24/23 dexlansoprazole 60 mg 60 mg PO DAILY 11/24/23 11/24/23 capsule,biphase delayed release mirabegron 25 mg tablet,extended 25 mg PO DAILY 11/24/23 11/24/23 release 24 hr Previous Rx's ?Medication ?Instructions ?Recorded acetaminophen 500 mg capsule 500 mg PO Q6H PRN pain #30 caps 06/07/24 cyclobenzaprine 10 mg tablet 10 mg PO TID PRN muscle spasm #10 06/07/24 tabs ibuprofen 600 mg tablet 600 mg PO Q8H PRN pain #20 tabs 06/07/24 pantoprazole 40 mg granules 40 mg PO QDAY #30 ea 07/30/24 delayed-release for susp in packet (Protonix) ibuprofen 600 mg tablet 600 mg PO Q6H PRN pain #30 tabs 10/05/24 ondansetron 4 mg disintegrating 4 mg PO Q8H PRN nausea and 01/18/25 tablet vomiting #14 tabs famotidine 40 mg tablet (Pepcid) 40 mg PO BID #30 tabs 01/19/25 metoclopramide HCl 10 mg tablet 10 mg PO Q6H PRN nausea and 01/19/25 (Reglan) vomiting #20 tabs sucralfate 1 gram tablet (Carafate) 1 g PO BID #20 tabs 01/19/25 Allergies Allergy/AdvReac Type Severity Reaction Status Date / Time hydrocodone (From [place]) Allergy Shakiness Verified 01/19/25 19:34 Review of Systems Review of Systems Narrative Review of Systems: Review of system reviewed and within normal limits except mentioned in HPI ED Exam Narrative Physical exam: VITAL SIGNS: Reviewed. GENERAL APPEARANCE: Alert and interactive, follows commands, no acute distress, HEAD AND FACE: Non-traumatic. ENT: PERRL, pink conjunctivitis, eyelid no trauma, Mucous membrane moist. NECK: Supple, nontender, no nuchal rigidity. CHEST: No tenderness, no crepitus, no paradoxical movement, no retractions. LUNGS: Clear, well ventilated, symmetric, no rales, no wheezing, no ronchi, no stridor, good breath sounds bilaterally. HEART: Regular rate, regular rhythm, no murmur, no gallops. ABDOMEN: Soft, positive bowel sounds, nondistended, no guarding, epigastric tenderness, no rebound, no masses, RECTAL: Deferred. GENITAL: Deferred. NEUROLOGICAL: Gross motor function intact sensory function intact, Appropriate for age. MUSCULOSKELETAL: low back nontender, full range of motion. EXTREMITIES: Nontender, full range of motion. SKIN: Color pink, dry, no rash, no lacerations, no abrasions, no contusions. LYMPHATICS: Deferred. Course Quality Measures none Orders Category Date Time Status EKG (ED ONLY) *Do not use* NOW Care 01/19/25 19:38 Completed EKG (ED Only) Stat Exams 01/19/25 19:38 Draft US breast RT complete Stat Exams 01/19/25 20:11 Completed XR chest 1V portable Stat Exams 01/19/25 20:11 Completed CBC Stat Lab 01/19/25 20:25 Completed Comprehensive Metabolic Panel Stat Lab 01/19/25 20:25 Completed Troponin I Stat Lab 01/19/25 20:25 Completed Metoclopramide [Reglan] Med 01/19/25 22:21 Once 10 mg PO X1 ONE mg Hyd/Al Hyd/Damon Susp [Maalox Susp] Med 01/19/25 22:21 Once 30 ml PO X1 ONE Vital Signs Vital signs: Vital Signs Temperature 98 F 01/19/25 20:03 Pulse Rate 95 01/19/25 20:03 Respiratory Rate 19 01/19/25 20:03 Blood Pressure 141/85 H 01/19/25 20:03 Pulse Oximetry (%) 96 01/19/25 20:03 Oxygen Delivery Method Room Air 01/19/25 20:03 Chest Pain MDM Narrative MDM Narrative:: 54F with history of DM presents to ED with 1 day of chest pain that radiates to R breast. Patient was here yesterday for similar complaints, but states today it feels different and not like her GERD. She is taking omeprazole every morning according to her is not working. Denies any other complaints no medication was taken prior to ER visit. Patient's workup all came back unremarkable. Including ultrasound of the breast. I personally reviewed and interpreted the x-ray of this patient. There is no acute abnormalities found, no infiltrates no pneumothorax no hemothorax normal chest x-ray. Review of other structures was without significant abnormal findings also. I additionally reviewed the radiologist report and agree with the interpretation. Her troponin is normal. EKG showed normal sinus rhythm, ventricular rate of [address] segment elevation or depression noted. Patient received Reglan, Maalox, and Protonix with significant improvement of symptoms Patient appears nontoxic and hemodynamically stable .Decision to discharge the patient. The patient/family was given an opportunity to ask questions and understood their discharge instructions. Discharge instructions specifically included follow up provider and time frame, current and/or new medications and possible side effects, indications for sooner follow up or return to the emergency department, and the expected course of current diagnosis. Patient reports feeling better as well and giving evidence of significant clinical improvement, I believe patient is now a candidate for discharge. Patient data External records reviewed:: None Clinical information provided by:: patient Social determinants that could affect healthcare access:: none Patient has the following chronic illnesses:: Diabetes mellitus, GERD How is presenting disease/condition affected by chronic disease/condition?: exacerbated by Evaluation data The following diagnostics were reviewed and interpreted by me:: lab results and radiology exam(s) Lab and/or radiology exams considered but not ordered:: None Interpretation Summary: See results MDM Medications / Prescriptions Medications or Prescriptions considered but not ordered:: None Medication administrations:: Medication Administration History Al Hydrox/Mg Hydrox/Simethicone (Mg Hyd/Al Hyd/Damon (Maalox Reg) Susp 30 Ml Udc) 30 ml PO X1 ONE Stop: 01/19/25 22:22 Discontinued Medications Metoclopramide HCl (Metoclopramide 5 Mg Tablet) 10 mg PO X1 ONE Stop: 01/19/25 22:22 Maalox, Protonix, Reglan Consultations Consultation(s) initiated? (list below): No Diagnosis Chest Pain Differential Diagnosis: pneumothorax and chest pain Most likely diagnosis given after review of the tests above:: GERD causing chest pain Admission Indicated Admission indicated?: not indicated Admission Request Was there a request for admission?: No Disposition Plan Disposition Plan: Discharge Discharge Attestation Discharge Attestation: The patient and all family members were given an opportunity to ask questions and understood the discharge instructions. Discharge instructions specifically effects, indications for sooner follow up or return to the emergency department, and the expected course of current diagnosis. Patient condition: Stable Discharge Plan Plan Patient Disposition: HOME (Self Care) Discharge Disposition comment: Stable Prescriptions/Referrals Prescriptions/Med Rec: New famotidine [Pepcid] 40 mg tablet 40 mg PO BID Qty: 30 0RF sucralfate [Carafate] 1 gram tablet 1 g PO BID Qty: 20 0RF metoclopramide HCl [Reglan] 10 mg tablet 10 mg PO Q6H PRN (Reason: nausea and vomiting) Qty: 20 0RF No Action metformin 1,000 mg Tablet 1,000 mg PO HS cyclobenzaprine 10 mg tablet 10 mg PO TID PRN (Reason: muscle spasm) Qty: 10 0RF ibuprofen 600 mg tablet 600 mg PO Q8H PRN (Reason: pain) Qty: 20 0RF acetaminophen 500 mg capsule 500 mg PO Q6H PRN (Reason: pain) Qty: 30 0RF ibuprofen 600 mg tablet 600 mg PO Q6H PRN (Reason: pain) Qty: 30 0RF ondansetron 4 mg tablet,disintegrating 4 mg PO Q8H PRN (Reason: nausea and vomiting) Qty: 14 0RF atorvastatin 10 mg tablet 10 mg PO HS Patient Comments: TAKE 1 TABLET BY MOUTH EVERY DAY AT BEDTIME FOR CHOLESTEROL dexlansoprazole 60 mg capsule,biphase delayed releas 60 mg PO DAILY Patient Comments: TAKE 1 CAPSULE BY MOUTH DAILY 1/2 HOUR BEFORE A MEAL FOR STOMACH mirabegron 25 mg tablet extended release 24 hr 25 mg PO DAILY Patient Comments: TAKE 1 TABLET BY MOUTH EVERY DAY FOR URINE pantoprazole [Protonix] [address] for susp in packet 40 mg PO QDAY Qty: 30 0RF Referrals: Liv Aldrich PA-C [Primary Care Provider, Family Practice] - In 1 week Problem List Clinical Impression: Chest pain due to GERD Patient/Caregiver Discharge Instructions Discharge Activity: activity as tolerated Education Materials: ED GERD (Adult) Additional Instructions: Thank you for the opportunity for serving you today. You are stable for discharged . You are advised to: Follow-up with your PCP in 1 to 2 days Return to ED for worsening of symptoms Increase oral fluids Take medication as prescribed Stop taking your antiacid medications for now Print Language: Spanish Stand Alone Forms: Vera Award Info., Patient Portal Info Letter PA/SOCIAL MEDIA MARKETING SPECIALIST Supervising Physician PA/RANDI Supervising Physician: MD Yuly
[2025-01-19 22:20] VITALS: BP 118/78; PULSE 77; RESP 17; TEMP 37.2; O2SAT 95
[2025-01-19] MEDS: METOCLOPRAMIDE 5 MG TABLET 10 MG PO (22:27)
[2025-01-19] MEDS: MG HYD/AL HYD/SIME (Maalox Reg) SUSP 30 ML UDC PO (22:28)
== END 2025-01-19 22:38 | disposition home or self-care (01) ==
PROVIDERS: Physician Assistant; Emergency Provider Emergency Medicine; PCP Physician Assistant
DX: K21.9 Gastro-esophageal reflux disease without esophagitis (principal); E11.9 Type 2 diabetes mellitus without complications; Z79.899 Other long term (current) drug therapy
CPT/HCPCS: 36415; 71045; 76641; 80053; 84484; 85025; 93005; 99283; A9270

== ENCOUNTER 2025-01-26 17:05 | Emergency (ER) | payer MEDICAID, SELFPAY ==
[2025-01-26 17:25] VITALS: BP 133/86; PULSE 89; RESP 18; TEMP 37.8; O2SAT 95; BMI 28.5
--- NOTE | 2025-01-26 17:35 | XR_ITS ---
Examination: CT abdomen and pelvis without contrast. Coronal 3-D reconstructions. Sagittal 2-D reconstructions. Date and time of exam: January 26, 2025, 1818 hours, comparison April 03, 2021 INDICATIONS: Generalized abdominal pain nausea vomiting diarrhea 1 year CTDI: vol (mGy): 7.65 DLP: (mGycm): 394 Technique: Axial images of the abdomen have been obtained, 3 mm slice thickness Intravenous contrast material has not been administered. Low dose protocols were performed. One or more of the following dose reduction techniques were used; automated exposure control, adjustment of the mA and/or KV according to patient size, use of iterative reconstruction technique. Findings: No focal liver or splenic lesions No gallstones No pancreatic mass. Fat-containing 17 mm left adrenal nodule noted on the 2020 exam No renal or ureteral calculi, no hydronephrosis Aorta normal size Possible filling defect in the cecum, coronal image 70 axial image 161, measuring 28 mm Normal appendix No bowel obstruction Urinary bladder intact Absent uterus Fat-containing inguinal hernias IMPRESSION: Suspicious for 28 mm filling defect in the cecum, recommend elective colonoscopy follow-up to exclude tumor mass in the cecum Normal appendix No bowel obstruction No colitis or diverticulitis
--- NOTE | 2025-01-26 17:35 | XR_ITS ---
Examination: CT brain head without contrast. 2-D sagittal coronal reconstructions Date and time of exam: January 26, 2025, 1813 hours, comparison November 24, 2024 INDICATIONS: Head pain and loss of balance today CTDI: vol (mGy): 45.7 DLP: (mGycm): 874 Technique: Multiple CT axial sections of the brain have been obtained, 5 mm slice thickness. Contrast has not been administered. 2-D sagittal, coronal reconstructions have been obtained Low dose protocols were performed. One or more of the following dose reduction techniques were used; automated exposure control, adjustment of the mA and/or KV according to patient size, use of iterative reconstruction technique. Findings: No significant ventricular enlargement. Intra-axial or extra-axial hemorrhage density is not seen. No mass effect or midline shift Basal cisterns are not remarkable. Fourth ventricle is midline. Cranial vault intact. Impression: Negative for acute hemorrhage, mass effect or midline shift Given the patient's presentation, as clinically warranted, consider brain MRI follow-up stroke protocol
--- NOTE | 2025-01-26 17:36 | EKG_ITS ---
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
--- NOTE | 2025-01-26 17:36 | PD.EDRME ---
Rapid Medical Screening Exam RME Arrival date/time: 01/26/25 17:05 54-year-old female presents to the emergency department today for plaint of generalized fatigue, headaches dizziness abdominal pain Chief Complaint: Nausea/Vomiting/Diarrhea Vital signs: Vital Signs Temperature 100.0 F 01/26/25 17:25 Pulse Rate 89 01/26/25 17:25 Respiratory Rate 18 01/26/25 17:25 Blood Pressure 133/86 H 01/26/25 17:25 Pulse Oximetry (%) 95 01/26/25 17:25 Oxygen Delivery Method Room Air 01/26/25 17:25
[2025-01-26 17:54] LABS: Basophils # (Auto) 0.0 Thou/mm3 (0.0-0.2); Basophils % (Auto) 0 % (0-2.5); Eosinophils # (Auto) 0.2 Thou/mm3 (0.0-0.5); Eosinophils % (Auto) 1 % (0-10); Hematocrit 44.7 % (36.0-46.0); Hemoglobin 14.7 g/dL (12.0-16.0); Immature Granulocytes Auto 0.04 Thou/mm3 (0.00-0.00); Lymphocytes # (Auto) 1.7 Thou/mm3 (1.0-4.8); Lymphocytes % (Auto) 13 % (10-50); Mean Corpuscular HGB Conc 32.9 g/dl (31.0-37.0); Mean Corpuscular Hemoglobin 28.3 pg (25.0-35.0); Mean Corpuscular Volume 86 fL (80-100); Monocytes # (Auto) 0.8 Thou/mm3 (0.0-0.8); Monocytes % (Auto) 6 % (0-12); Neutrophils # (Auto) 10.5 Thou/mm3 (1.8-7.7); Neutrophils % (Auto) 79 % (37-80); Nucleated Red Blood Cell # 0.00 Thou/mm3 (0.00-0.00); Nucleated Red Blood Cell % 0 /100 WBC (0); Platelet Count 372 Thou/mm3 (140-440); RDW Standard Deviation 45.8 fL (36.4-46.3); Red Blood Count 5.20 Miln/mm3 (4.00-5.20); White Blood Count 13.3 Thou/mm3 (3.6-11.0)
[2025-01-26 18:13] LABS: Alanine Aminotransferase 21 U/L (10-49); Albumin, Serum 4.8 gm/dL (3.5-5.0); Albumin/Globulin Ratio 2.3 (1.2-2.2); Alkaline Phosphatase 140 U/L (46-116); Anion Gap 10 (7-16); Aspartate Amino Transferase 20 U/L (0-34); BUN/Creatinine Ratio 6 Ratio (12-20); Bilirubin,Total 0.7 mg/dL (0.3-1.2); Blood Urea Nitrogen < 5 mg/dL (9-23); Calcium 9.7 mg/dL (8.3-10.6); Calcium (Corrected) 9.7 mg/dL (8.5-10.1); Carbon Dioxide 25.6 mMol/L (20.0-31.0); Chloride 105 mMol/L (98-107); Creatinine (Component) 0.9 mg/dL (0.6-1.3); Estimated Creatinine Clearance 65.1 mL/min (>60); Globulin 2.1 gm/dL (2.3-3.5); Glucose 109 mg/dL (74-106); Lipase 29 U/L (12-53); Osmolality,Calculated 279 (275-295); Potassium 3.8 mMol/L (3.4-5.1); Sodium 141 mMol/L (136-145); Total Protein 6.9 gm/dL (5.7-8.2); Troponin I < 0.002 ng/mL (0.0-0.045); eGFR > 60 See Note
[2025-01-26 18:39] LABS: Collection Type, Urine Clean Catch
[2025-01-26 18:46] LABS: Bilirubin,Urine Negative (Negative); Blood,Urine Negative (Negative); Clarity,Urine Clear (Clear/Hazy); Color,Urine Lt-Yellow (Lt Yel-Yel); Culture Indicated,Urine Not Indicated; Glucose, Urine Negative (Negative); Ketones,Urine Negative (Negative); Leukocyte Esterase,Urine Negative (Negative); Nitrite,Urine Negative (Negative); PH,Urine 6.5 (5.0-7.0); Protein,Urine Negative (Neg - Trace); RBC,Urine < 1 /hpf (0-3); Specific Gravity,Urine 1.008 (1.001-1.035); Squamous Epithelial Cell,Urine 2 /hpf (0-5); Urobilinogen,Urine Negative mg/dL (0.0-1.0); WBC,Urine 1 /hpf (0-5)
--- NOTE | 2025-01-26 19:06 | PD.EDADULT ---
ED General RME/HPI General Chief complaint: Nausea/Vomiting/Diarrhea Stated complaint: Vomiting X 3 days, diarrhea, off-balance Time Seen by Provider: 01/26/25 18:57 Arrival date/time: 01/26/25 17:05 Headache dizziness abdominal pain HPI ongoing for approximately 1 week along with nausea and vomiting. The patient has had chronic low left back pain for the past several months. Patient states she has a ulcer , and is waiting for referral to a GI specialist. Patient denies bloody stools. She states she has diarrhea up until day before yesterday vomiting until day before yesterday. But nausea only without any vomiting or diarrhea yesterday and today. Patient is awake alert oriented with flat affect. RME / HPI RME / HPI narrative: 01/26/25 17:05 54-year-old female presents to the emergency department today for plaint of generalized fatigue, headaches dizziness abdominal pain Related Data Home Medications ?Medication ?Instructions ?Recorded ?Confirmed metformin 1,000 mg tablet 1,000 mg PO HS 04/02/21 11/24/23 atorvastatin 10 mg tablet 10 mg PO HS 11/24/23 11/24/23 dexlansoprazole 60 mg 60 mg PO DAILY 11/24/23 11/24/23 capsule,biphase delayed release mirabegron 25 mg tablet,extended 25 mg PO DAILY 11/24/23 11/24/23 release 24 hr Previous Rx's ?Medication ?Instructions ?Recorded acetaminophen 500 mg capsule 500 mg PO Q6H PRN pain #30 caps 06/07/24 cyclobenzaprine 10 mg tablet 10 mg PO TID PRN muscle spasm #10 06/07/24 tabs ibuprofen 600 mg tablet 600 mg PO Q8H PRN pain #20 tabs 06/07/24 pantoprazole 40 mg granules 40 mg PO QDAY #30 ea 07/30/24 delayed-release for susp in packet (Protonix) ibuprofen 600 mg tablet 600 mg PO Q6H PRN pain #30 tabs 10/05/24 ondansetron 4 mg disintegrating 4 mg PO Q8H PRN nausea and 01/18/25 tablet vomiting #14 tabs famotidine 40 mg tablet (Pepcid) 40 mg PO BID #30 tabs 01/19/25 metoclopramide HCl 10 mg tablet 10 mg PO Q6H PRN nausea and 01/19/25 (Reglan) vomiting #20 tabs sucralfate 1 gram tablet (Carafate) 1 g PO BID #20 tabs 01/19/25 ondansetron 4 mg disintegrating 4 mg PO Q8H #20 tabs 01/26/25 tablet Allergies Allergy/AdvReac Type Severity Reaction Status Date / Time hydrocodone (From [place]) Allergy Shakiness Verified 01/26/25 17:10 Review of Systems Review of Systems Narrative Review of Systems: GEN: No fever, no chills, no weight loss EYES: No discharge, no visual changes, no pain HEENT: No ear pain, no congestion, no sore throat PULM: No shortness of breath, no cough, no congestion CV: No chest pain, no dyspnea on exertion, no palpitations GI: + nausea, + vomiting, no diarrhea, no pain, no constipation : No frequency, no urgency, no dysuria MUSC/SKEL: No joint pain, no back pain SKIN: No rash PSYCH: No hallucinations, no depression HEME/LYMPH: No easy bleeding or bruising tendencies NEURO: No weakness, no headache Past Medical History Past Medical History NEUROLOGIC: Negative Neurological Disorders or Seizures CARDIAC: Positive Cardiac Disorders, Hypercholesterolemia and Hypertension; Negative Congestive Heart Failure RESPIRATORY: Negative Chronic Obstructive Pulmonary Disease (COPD), Asthma, Emphysema, Pneumonia or Tuberculosis GASTROINTESTINAL: Positive Gastroesophageal Reflux Disease; Negative Gastrointestinal Disorders GENITOURINARY: Positive Genitourinary Disorders (over reactive uinary bladder); Negative Renal Disease MUSCULOSKELETAL: Negative Musculoskeletal Disorders ENDOCRINE: Positive Endocrine Disorders and Diabetes Mellitus Type 2; Negative Diabetes Mellitus Type 1 HEMATOLOGIC: Negative Blood Disorders or Sickle Cell Disease OTHER HISTORY: Positive Chicken Pox; Negative Blood Transfusions, Anesthesia Reactions or Cancer Surgical History SURGICAL: Positive Tonsillectomy, Hysterectomy and Tubal Ligation; Negative Joint Replacement (bilateral feet surgery to remove extra bone ) Social History SMOKING STATUS: Current every day smoker ED Exam Narrative Physical exam: [General: In mild discomfort but not in any acute distress Head normocephalic HEENT: Eyes pupils are PERRLA EOMs are intact all of the subsystems of HEENT are within acceptable limits Neck is supple nontender Chest equal chest rise nontender to palpation Respiratory: Clear to auscultation no wheezes crackles or rubs CV: Rate rhythm is regular no murmurs rubs or clicks Abdomen is distended secondary to body habitus soft nontender no masses positive bowel sounds all 4 quadrants Back: No CVA tenderness no spinous process tenderness from cervical spine thoracic and lumbar spine Skin: Intact no petechiae rash induration ulceration or crepitus Extremities: Moving all extremity against resistance cap refill less than 2 seconds neurosensory intact Neuro: Awake alert oriented x3 Glascow coma 15 no focal deficits] Course Course Course Narrative: I do lengthy conversation with the patient at 2019, the patient needs to continue to get a referral for colonoscopy and endoscopy after getting the CT results showing a filling defect that recommends a colon anoscopy. The patient has had nausea relief with ondansetron at this time we will send her home with a prescription of this for recurrent intermittent nausea. There is no acute finding that requires emergent or immediate intervention. Patient will be discharged home Quality Measures none Orders Category Date Time Status Bedside COVID-19 Antigen Test NOW Care 01/26/25 19:35 Active EKG (ED ONLY) *Do not use* NOW Care 01/26/25 17:[address] abdomen pelvis wo con Stat Exams 01/26/25 17:[address] head/brain wo con Stat Exams 01/26/25 17:35 Completed EKG (ED Only) Stat Exams 01/26/25 17:36 Draft CBC Stat Lab 01/26/25 17:47 Completed Comprehensive Metabolic Panel Stat Lab 01/26/25 17:47 Completed Influenza A & B Rapid Panel Stat Lab 01/26/25 19:35 Ordered Lipase Stat Lab 01/26/25 17:47 Completed Troponin I Stat Lab 01/26/25 17:47 Completed UA, C/S IF [Urinalysis, C/S if Indicated] Stat Lab 01/26/25 18:20 Completed Ondansetron Odt [Zofran Odt] Med 01/26/25 19:34 Discontinued 4 mg PO X1 ONE Vital Signs Vital signs: Vital Signs Temperature 100.0 F 01/26/25 17:25 Pulse Rate 89 01/26/25 17:25 Respiratory Rate 18 01/26/25 17:25 Blood Pressure 133/86 H 01/26/25 17:25 Pulse Oximetry (%) 95 01/26/25 17:25 Oxygen Delivery Method Room Air 01/26/25 17:25 Discharge Plan Plan Patient Disposition: HOME (Self Care) Patient condition on transfer: Stable Prescriptions/Referrals Prescriptions/Med Rec: New ondansetron 4 mg tablet,disintegrating 4 mg PO Q8H Qty: 20 0RF No Action metformin 1,000 mg Tablet 1,000 mg PO HS cyclobenzaprine 10 mg tablet 10 mg PO TID PRN (Reason: muscle spasm) Qty: 10 0RF ibuprofen 600 mg tablet 600 mg PO Q8H PRN (Reason: pain) Qty: 20 0RF acetaminophen 500 mg capsule 500 mg PO Q6H PRN (Reason: pain) Qty: 30 0RF ibuprofen 600 mg tablet 600 mg PO Q6H PRN (Reason: pain) Qty: 30 0RF ondansetron 4 mg tablet,disintegrating 4 mg PO Q8H PRN (Reason: nausea and vomiting) Qty: 14 0RF famotidine [Pepcid] 40 mg tablet 40 mg PO BID Qty: 30 0RF sucralfate [Carafate] 1 gram tablet 1 g PO BID Qty: 20 0RF metoclopramide HCl [Reglan] 10 mg tablet 10 mg PO Q6H PRN (Reason: nausea and vomiting) Qty: 20 0RF atorvastatin 10 mg tablet 10 mg PO HS Patient Comments: TAKE 1 TABLET BY MOUTH EVERY DAY AT BEDTIME FOR CHOLESTEROL dexlansoprazole 60 mg capsule,biphase delayed releas 60 mg PO DAILY Patient Comments: TAKE 1 CAPSULE BY MOUTH DAILY 1/2 HOUR BEFORE A MEAL FOR STOMACH mirabegron 25 mg tablet extended release 24 hr 25 mg PO DAILY Patient Comments: TAKE 1 TABLET BY MOUTH EVERY DAY FOR URINE pantoprazole [Protonix] [address] for susp in packet 40 mg PO QDAY Qty: 30 0RF Referrals: Liv Aldrich PA-C [Primary Care Provider, Family Practice] - In 1 week Dmitry Urena MD [Physician, Gastroenterology] - In 1 week Problem List Clinical Impression: Abdominal pain, Nausea & vomiting Patient/Caregiver Discharge Instructions Other Activity Instructions:: Avoid NSAIDs such as ibuprofen Motrin Naprosyn or naproxen. Use Tylenol for pain, use the medicines prescribed for nausea. Make sure you continue to follow-up on the referral for endoscopy colonoscopy by your PCP. Education Materials: Abdominal Pain, ED Vomiting and Diarrhea ... Print Language: Swedish Stand Alone Forms: Vera Award Info., Patient Portal Info Letter PA/RANDI Supervising Physician PA/OVERLOCK OPERATOR Supervising Physician: Sukhjinder Palomares ENP [facility] Clinical Information Provided by: patient Medical Records reviewed [facility] Meds/Rx considered, not ordered None Labs/Rad/Tests considered, not ordered None Chronic Illness/Social Conditions which may negatively complicate care or outcome(s)-explain: None or not applicable EKG Interpretation EKG #1: EKG Interpretation: EKG performed at 1737 shows a ventricular rate of 84 DE interval 152 QRS of 64 QTc of 376 this is sinus rhythm. Labs Labs: interpreted by me Lab(s) Interpretation(s): CBC shows a mild leukocytosis of 13.3 no other anemia thrombocytopenia CMP shows no significant electrolyte imbalances other than a glucose of 109, no transaminitis T. bili Lipase within acceptable limits Urine is negative for any acute finding Imaging Imaging interpretation: interpreted by me Imaging Interpretation(s): CT head is negative as interpreted by me read by radiology. CT abdomen shows a filling defect with the recommended follow-up colonoscopy in the next 6 months. Medication Administration(s) none Medication Administration History Discontinued Medications Ondansetron HCl (Ondansetron Odt 4 Mg Tabrap) 4 mg PO X1 ONE; Protocol Stop: 01/26/25 19:35 Last Admin: 01/26/25 20:07 Dose: 4 mg Documented By: DIMPLE
--- NOTE | 2025-01-26 19:20 | PC.NURSE ---
pt resting quietly. family at bedside.
--- NOTE | 2025-01-26 19:27 | PC.NURSE ---
provider with pt now. pt asking for pain med.
[2025-01-26] MEDS: ONDANSETRON ODT 4 MG TABRAP PO (20:07)
[2025-01-26 20:56] VITALS: BP 109/78; PULSE 84; RESP 18; TEMP 37.1; O2SAT 96
== END 2025-01-26 20:58 | disposition home or self-care (01) ==
PROVIDERS: Nurse Practitioner Primary Care; Emergency Provider Emergency Medicine
DX: R10.9 Unspecified abdominal pain (principal); R11.2 Nausea with vomiting, unspecified
CPT/HCPCS: 36415; 70450; 74176; 80053; 81001; 83690; 84484; 85025; 87400; 87502; 87811; 93005; 99283; Q0162

== ENCOUNTER → 2025-03-12 | Outpatient (CLI) | payer MEDICAID, SELFPAY ==
--- NOTE | 2025-03-12 10:30 | XR_ITS ---
EXAMINATION: Upper GI series with KUB Fluoroscopy 20 spot fluoroscopic films of the esophagus and stomach RPO AP abdomen Date and time: 2024, 1156 hours INDICATIONS: Heartburn 1 year. FINDINGS: 20 spot fluoroscopic films of the esophagus and stomach with the patient swallowing thin barium Primary peristaltic esophageal waves Moderate intermittent gastroesophageal reflux No stricture at the gastroesophageal junction Peristalsis traverses the stomach normally No gastric mass deformity or ulceration No duodenal ulcer small bowel visualized unremarkable Fluoroscopy 0.2-minute radiation dose 107.95 mGy 20 spot fluoroscopic films IMPRESSION: Moderate intermittent gastroesophageal reflux No gastric mass deformity or ulceration
--- NOTE | 2025-03-12 11:30 | XR_ITS ---
Examination: Retroperitoneal ultrasound, complete Technique: Multiple high resolution grayscale images of the retroperitoneum obtained, including kidneys and bladder. Exam date and time: March 12, 2025, 1121 hours INDICATIONS: Onset right flank pain beginning 1 year ago FINDINGS: Right kidney 10.8 cm renal cortex 1.9 cm Left kidney 12.2 cm renal cortex 2.8 cm No hydronephrosis or renal calculi Contracted urinary bladder IMPRESSION: No hydronephrosis or renal calculi
== END | disposition home or self-care (01) ==
LOC: SDIM 11:01
PROVIDERS: PCP Physician Assistant; Referring Provider Physician Assistant; Visit Provider Physician Assistant
DX: K21.9 Gastro-esophageal reflux disease without esophagitis (principal); R10.12 Left upper quadrant pain
CPT/HCPCS: 74240; 76770; A4649

== ENCOUNTER 2025-03-25 14:10 | Emergency (ER) | payer MEDICAID, SELFPAY ==
[2025-03-25 14:10] VITALS: BMI 27.6
[2025-03-25 14:58] VITALS: BP 127/82; PULSE 86; RESP 18; TEMP 36.7; O2SAT 96
--- NOTE | 2025-03-25 15:06 | EKG_ITS ---
[facility] Test Date: 2025-03-25 Pat Name: CHRISTIANO ISBELL Department: Room: - Gender: Female [employer]: : [id number] Requested By: Chavez Rob Order Number: [id number] Reading MD: Chavez Rob Measurements Intervals [place] Rate: 78 P: 68 GA: 141 QRS: 48 QRSD: 77 T: 62 QT: 349 QTc: 398 Interpretive Statements SINUS RHYTHM Compared to ECG 01/26/2025 17:37:23 T-wave abnormality no longer present /store/S0/[id number]/ecg/[id number].pdf
--- NOTE | 2025-03-25 15:06 | XR_ITS ---
EXAMINATION: PA chest single view TECHNIQUE: Upright PA chest single view Date and time: March 15, 2025, 1512 hours, comparison January 19, 2025 INDICATIONS: Shortness of breath chest pain beginning 2 days ago. FINDINGS: Normal heart size No pneumonia or pulmonary edema. Moderate osteopenia IMPRESSION: No pneumonia or pulmonary edema
--- NOTE | 2025-03-25 15:07 | PD.EDRME ---
Rapid Medical Screening Exam RME Arrival date/time: 03/25/25 14:10 Chief Complaint: Chest Pain Time Seen by Provider: 03/25/25 14:38 Vital signs: Vital Signs Temperature 98.1 F 03/25/25 14:58 Pulse Rate 86 03/25/25 14:58 Respiratory Rate 18 03/25/25 14:58 Blood Pressure 127/82 03/25/25 14:58 Pulse Oximetry (%) 96 03/25/25 14:58 Oxygen Delivery Method Room Air 03/25/25 14:58 RME Narrative: Patient reports left-sided chest wall pain worse with movement and palpation since last night Exam: Well-appearing, no acute distress Clinical Impression: Chest pain
[2025-03-25 15:47] LABS: Basophils # (Auto) 0.1 Thou/mm3 (0.0-0.2); Basophils % (Auto) 0 % (0-2.5); Eosinophils # (Auto) 0.1 Thou/mm3 (0.0-0.5); Eosinophils % (Auto) 1 % (0-10); Hematocrit 43.4 % (36.0-46.0); Hemoglobin 13.9 g/dL (12.0-16.0); Immature Granulocytes Auto 0.05 Thou/mm3 (0.00-0.00); Lymphocytes # (Auto) 1.7 Thou/mm3 (1.0-4.8); Lymphocytes % (Auto) 14 % (10-50); Mean Corpuscular HGB Conc 32.0 g/dl (31.0-37.0); Mean Corpuscular Hemoglobin 28.0 pg (25.0-35.0); Mean Corpuscular Volume 88 fL (80-100); Monocytes # (Auto) 0.7 Thou/mm3 (0.0-0.8); Monocytes % (Auto) 5 % (0-12); Neutrophils # (Auto) 10.1 Thou/mm3 (1.8-7.7); Neutrophils % (Auto) 79 % (37-80); Nucleated Red Blood Cell # 0.00 Thou/mm3 (0.00-0.00); Nucleated Red Blood Cell % 0 /100 WBC (0); Platelet Count 411 Thou/mm3 (140-440); RDW Standard Deviation 48.3 fL (36.4-46.3); Red Blood Count 4.96 Miln/mm3 (4.00-5.20); White Blood Count 12.7 Thou/mm3 (3.6-11.0)
[2025-03-25 15:55] LABS: B-Type Natriuretic Peptide 30 pg/mL (0-100)
[2025-03-25 15:56] LABS: Alanine Aminotransferase 18 U/L (10-49); Albumin, Serum 4.8 gm/dL (3.5-5.0); Albumin/Globulin Ratio 2.2 (1.2-2.2); Alkaline Phosphatase 162 U/L (46-116); Anion Gap 6 (7-16); Aspartate Amino Transferase 18 U/L (0-34); BUN/Creatinine Ratio 10 Ratio (12-20); Bilirubin,Total 0.7 mg/dL (0.3-1.2); Blood Urea Nitrogen 7 mg/dL (9-23); Calcium 9.8 mg/dL (8.3-10.6); Calcium (Corrected) 9.8 mg/dL (8.5-10.1); Carbon Dioxide 25.5 mMol/L (20.0-31.0); Chloride 111 mMol/L (98-107); Creatinine (Component) 0.7 mg/dL (0.6-1.3); Estimated Creatinine Clearance 82.4 mL/min (>60); Globulin 2.2 gm/dL (2.3-3.5); Glucose 102 mg/dL (74-106); Osmolality,Calculated 281 (275-295); Potassium 4.5 mMol/L (3.4-5.1); Sodium 142 mMol/L (136-145); Total Protein 7.0 gm/dL (5.7-8.2); Troponin I < 0.002 ng/mL (0.0-0.045); eGFR > 60 See Note
--- NOTE | 2025-03-25 17:35 | PD.EDCHEST ---
ED Chest Pain RME/HPI General Chief Complaint: Chest Pain Stated Complaint: CHEST PAIN X2 DAYS Time Seen by Provider: 03/25/25 14:38 Arrival date/time: 03/25/25 14:10 RME / HPI RME / HPI narrative: Patient reports left-sided chest wall pain worse with movement and palpation since last night DR. MADDEN MAIN ED EVALUATION: 54 y/o female with Hx of GERD, HTN, and Hypercholesterolemia presents with left-sided chest pain with mild shortness of breath due to pain x last night. Patient has tried IBU 600 mg and Tylenol at home with minimal relief. Pain is worse with rotation of the torso and application of pressure to the chest. Patient admits to tobacco use. Also reports a productive cough that has subsided. Exam: Well-appearing, no acute distress Impression: Chest pain Related Data Home Medications ?Medication ?Instructions ?Recorded ?Confirmed metformin 1,000 mg tablet 1,000 mg PO HS 04/02/21 11/24/23 atorvastatin 10 mg tablet 10 mg PO HS 11/24/23 11/24/23 dexlansoprazole 60 mg 60 mg PO DAILY 11/24/23 11/24/23 capsule,biphase delayed release mirabegron 25 mg tablet,extended 25 mg PO DAILY 11/24/23 11/24/23 release 24 hr Previous Rx's ?Medication ?Instructions ?Recorded acetaminophen 500 mg capsule 500 mg PO Q6H PRN pain #30 caps 06/07/24 cyclobenzaprine 10 mg tablet 10 mg PO TID PRN muscle spasm #10 06/07/24 tabs ibuprofen 600 mg tablet 600 mg PO Q8H PRN pain #20 tabs 06/07/24 pantoprazole 40 mg granules 40 mg PO QDAY #30 ea 07/30/24 delayed-release for susp in packet (Protonix) ibuprofen 600 mg tablet 600 mg PO Q6H PRN pain #30 tabs 10/05/24 ondansetron 4 mg disintegrating 4 mg PO Q8H PRN nausea and 01/18/25 tablet vomiting #14 tabs famotidine 40 mg tablet (Pepcid) 40 mg PO BID #30 tabs 01/19/25 metoclopramide HCl 10 mg tablet 10 mg PO Q6H PRN nausea and 01/19/25 (Reglan) vomiting #20 tabs sucralfate 1 gram tablet (Carafate) 1 g PO BID #20 tabs 01/19/25 ondansetron 4 mg disintegrating 4 mg PO Q8H #20 tabs 01/26/25 tablet Allergies Allergy/AdvReac Type Severity Reaction Status Date / Time hydrocodone (From [place]) Allergy Shakiness Verified 01/26/25 17:10 Review of Systems Review of Systems Systems Reviewed: All systems reviewed, normal except as documented Past Medical History Past Medical History CARDIAC: Positive Cardiac Disorders, Hypercholesterolemia and Hypertension GASTROINTESTINAL: Positive Gastroesophageal Reflux Disease GENITOURINARY: Positive Genitourinary Disorders ENDOCRINE: Positive Endocrine Disorders and Diabetes Mellitus Type 2 OTHER HISTORY: Positive Chicken Pox Surgical History SURGICAL: Positive Tonsillectomy, Hysterectomy and Tubal Ligation Social History SMOKING STATUS: Current every day smoker ED Exam Narrative Physical exam: GENERAL APPEARANCE: alert and oriented x 4, well-developed, well-nourished, no acute distress VITALS: All vitals were reviewed and the pulse ox is 96% on room air, which is normal according to my interpretation. HEENT: Normocephalic, atraumatic; pupils equal, round, reactive to light; EOMI; mucous membranes pink, moist; oropharynx clear NECK: Supple LUNGS: CTABL; no wheezes, no rales, no rhonchi CHEST: Chest wall tenderness to the left side HEART: Regular rate, regular rhythm; normal S1, S2; no murmurs ABDOMEN: non distended; normal BS; soft, no tenderness, no guarding, no rebound; no masses, no organomegaly, no hernia BACK: no CVA tenderness EXTREMITIES: atraumatic; no edema NEUROLOGIC: awake; alert and oriented x4; cranial nerves II-XII grossly intact; no focal sensory or motor deficits PSYCHIATRIC: appropriate mood and affect SKIN: warm, dry, normal color; no rashes Course Quality Measures none Orders Category Date Time Status EKG (ED ONLY) *Do not use* NOW Care 03/25/25 15:07 Completed CXR [XR chest 1V] Stat Exams 03/25/25 15:06 Completed EKG (ED Only) Stat Exams 03/25/25 15:06 Draft BNP [B-Type Natriuretic Peptide] Stat Lab 03/25/25 15:29 Completed CBC Stat Lab 03/25/25 15:29 Completed CMP [Comprehensive Metabolic Panel] Stat Lab 03/25/25 15:29 Completed Troponin I Stat Lab 03/25/25 15:29 Completed Ketorolac Inj [Toradol Inj] Med 03/25/25 16:35 Discontinued 30 mg IM X1 ONE Vital Signs Vital signs: Vital Signs Temperature 98.1 F 03/25/25 14:58 Pulse Rate 86 03/25/25 14:58 Respiratory Rate 18 03/25/25 14:58 Blood Pressure 127/82 03/25/25 14:58 Pulse Oximetry (%) 96 03/25/25 14:58 Oxygen Delivery Method Room Air 03/25/25 14:58 Chest Pain MDM Narrative MDM Narrative:: Scribe Attestation: Lavonne Jordan, am scribing for and in the presence of Dr. Madden. Provider Notation: Although this document has been carefully reviewed, there may still be some phonetic and other typographical errors. These errors are purely grammatical due to imperfections in the software program and should not be construed in any way to compromise the substance of the patient's medical care during this visit. Patient data External records reviewed:: [facility] previous records (Reviewed prior ED records from 01/26/25. Patient was seen for Abdominal pain.) Clinical information provided by:: patient Social determinants that could affect healthcare access:: none Patient has the following chronic illnesses:: Hypercholesterolemia, Hypertension, Gastroesophageal Reflux Disease, Diabetes Mellitus Type 2 How is presenting disease/condition affected by chronic disease/condition?: exacerbated by Evaluation data The following diagnostics were reviewed and interpreted by me:: lab results, radiology exam(s) and EKG tracing(s) (EKG manual reading, my interpretation: sinus rhythm, rate: 78 bpm, no ST elevation, no acute ischemic changes, interpreted as normal.) Lab and/or radiology exams considered but not ordered:: None Interpretation Summary: RADIOLOGY Chest X-Ray: FINDINGS: Normal heart size No pneumonia or pulmonary edema. Moderate osteopenia IMPRESSION: No pneumonia or pulmonary edema Medications / Prescriptions Medications or Prescriptions considered but not ordered:: None Medication administrations:: Medication Administration History Discontinued Medications Ketorolac Tromethamine (Ketorolac Inj 30 Mg/Ml Vial) 30 mg IM X1 ONE Stop: 03/25/25 16:36 Last Admin: 03/25/25 17:48 Dose: 30 mg Documented By: SYMONE See above if any Consultations Consultation(s) initiated? (list below): No Diagnosis Chest Pain Differential Diagnosis: fracture of rib, stable angina, unstable angina pectoris, atypical chest pain, st elevation myocardial infarction, costochondritis and chest pain Most likely diagnosis given after review of the tests above:: Left-sided chest wall pain Admission Indicated Admission indicated?: not indicated Explain why admission is indicated or not indicated:: Patient does not meet admission criteria Admission Request Was there a request for admission?: No Disposition Plan Disposition Plan: Discharge Discharge Attestation Discharge Attestation: The patient and all family members were given an opportunity to ask questions and understood the discharge instructions. Discharge instructions specifically effects, indications for sooner follow up or return to the emergency department, and the expected course of current diagnosis. Patient condition: Stable Discharge Plan Plan Patient Disposition: HOME (Self Care) Prescriptions/Referrals Prescriptions/Med Rec: No Action metformin 1,000 mg Tablet 1,000 mg PO HS cyclobenzaprine 10 mg tablet 10 mg PO TID PRN (Reason: muscle spasm) Qty: 10 0RF ibuprofen 600 mg tablet 600 mg PO Q8H PRN (Reason: pain) Qty: 20 0RF acetaminophen 500 mg capsule 500 mg PO Q6H PRN (Reason: pain) Qty: 30 0RF ibuprofen 600 mg tablet 600 mg PO Q6H PRN (Reason: pain) Qty: 30 0RF ondansetron 4 mg tablet,disintegrating 4 mg PO Q8H PRN (Reason: nausea and vomiting) Qty: 14 0RF famotidine [Pepcid] 40 mg tablet 40 mg PO BID Qty: 30 0RF sucralfate [Carafate] 1 gram tablet 1 g PO BID Qty: 20 0RF metoclopramide HCl [Reglan] 10 mg tablet 10 mg PO Q6H PRN (Reason: nausea and vomiting) Qty: 20 0RF ondansetron 4 mg tablet,disintegrating 4 mg PO Q8H Qty: 20 0RF atorvastatin 10 mg tablet 10 mg PO HS Patient Comments: TAKE 1 TABLET BY MOUTH EVERY DAY AT BEDTIME FOR CHOLESTEROL dexlansoprazole 60 mg capsule,biphase delayed releas 60 mg PO DAILY Patient Comments: TAKE 1 CAPSULE BY MOUTH DAILY 1/2 HOUR BEFORE A MEAL FOR STOMACH mirabegron 25 mg tablet extended release 24 hr 25 mg PO DAILY Patient Comments: TAKE 1 TABLET BY MOUTH EVERY DAY FOR URINE pantoprazole [Protonix] [address] for susp in packet 40 mg PO QDAY Qty: 30 0RF Referrals: Liv Aldrich PA-C [Primary Care Provider, Family Practice] - In 1 week Problem List Clinical Impression: Left-sided chest wall pain Patient/Caregiver Discharge Instructions Education Materials: ED Chest Wall Pain, Costochondritis Print Language: Thai Stand Alone Forms: Vera Award Info., Patient Portal Info Letter
[2025-03-25] MEDS: KETOROLAC INJ 30 MG/ML VIAL IM (17:48)
== END 2025-03-25 17:52 | disposition home or self-care (01) ==
PROVIDERS: Physician Assistant; Emergency Provider Emergency Medicine; PCP Physician Assistant
DX: R07.89 Other chest pain (principal); R06.02 Shortness of breath; E78.00 Pure hypercholesterolemia, unspecified; I10 Essential (primary) hypertension; Z72.0 Tobacco use
CPT/HCPCS: 36415; 71045; 80053; 83880; 84484; 85025; 93005; 96372; 99283; J1885